=== PATIENT | female | born 1940 | race Caucasian/White ===

== ENCOUNTER 2017-09-16 19:53 | Emergency (ER) | payer MEDICARE, OTHER ==
[~2017-09-16] VITALS: Ht 160 cm; Wt 57.2 kg
[~2017-09-16 19:53] MED LIST: ASP81CT PO; DILT120C85 PO; Metoprolol Succinate PO; Simvastatin PO
--- NOTE | 2017-09-16 20:19 | ED General ---
General Chief Complaint: Dizziness/Syncope Stated Complaint: LIGHTHEADED,DIZZY Source of Information: Patient (VERY LIMITED HISTORIAN AND HARD OF HEARING), Family (SON) History of Present Illness Time Seen by Provider: 20:10 Initial Comments PT ARRIVES VIA POV FROM HOME PT C/O FEELING LIGHTHEADED AND DIZZY TODAY PT DENIES ANY OTHER SYMPTOMS OF ANY KIND TEMP IS 100.5 ON ARRIVAL--PT UNAWARE THAT SHE HAS FEVER NO COUGH NO CHEST PAIN OR SHORTNESS OF BREATH NO NAUSEA/VOMITING/DIARRHEA OR ABDOMINAL PAIN--GOOD APPETITE, ATE AND DRANK WELL TODAY NO PROBLEMS URINATING NO HEADACHE NO PAIN ANYWHERE PCP: DR. GOLD, [facility] Allergies and Home Medications Allergies Coded Allergies: propoxyphene (Unverified Allergy, Unknown, 03/22/15) Home Medications Aspirin 81 Mg Chew, 81 MG PO DAILY, (Reported) Aspirin 81 Mg Chew, 81 MG PO DAILY, #30 Ref 5 Prescribed by: JERMAN MARVIN on 03/22/15 0943 Diltiazem Hcl 120 Mg Capsule.sa, 120 MG PO DAILY, (Reported) Nitrofurantoin Monohyd/M-Cryst 100 Mg Capsule, 100 MG PO BID, #20 Prescribed by: MOMO COLON on 09/16/17 2345 [Metoprolol Succinate] 50 MG TAB, 50 MG PO ONCE, #30 Ref 5 Prescribed by: JERMAN MARVIN on 03/22/15 0943 [Simvastatin] 10 MG TAB, 10 MG PO HS, #30 Ref 5 Prescribed by: JERMAN MARVIN on 03/22/15 0943 Constitutional: see HPI, dizziness EENTM: no symptoms reported Respiratory: no symptoms reported Cardiovascular: no symptoms reported Gastrointestinal: no symptoms reported Genitourinary: no symptoms reported Musculoskeletal: no symptoms reported Skin: no symptoms reported Psychiatric/Neurological: No Symptoms Reported Hematologic/Lymphatic: No Symptoms Reported Immunological/Allergic: no symptoms reported Past Triuhlp-Wqxnuw-Clivcq Hx Patient Social History Alcohol Use: Denies Use Recreational Drug Use: No Smoking Status: Former Smoker (2 PPD) Recent Foreign Travel: No Contact w/Someone Who Travel: No Immunizations Up To Date Tetanus Booster (TDap): Unknown Surgeries History of Surgeries: No Respiratory History of Respiratory Disorde: No Cardiovascular History of Cardiac Disorders: Yes (NON-STEMI, NO CARDIAC CATH-TREATED CONSERVATIVELY) Cardiac Disorders: Heart Attack, High Cholesterol, Hypertension Neurological History of Neurological Disord: Yes (POOR MEMORY) 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 System Hx 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 Disorders: No 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 Genitourinary History of Genitourinary Disor: No Gastrointestinal History of Gastrointestinal Di: Yes (CHRONIC DIARRHEA WITH FECAL INCONTINENCE) Gastrointestinal Disorders: Chronic Diarrhea Musculoskeletal History of Musculoskeletal Dis: No Endocrine History of Endocrine Disorders: No HEENT History of HEENT Disorders: No Psychosocial History of Psychiatric Problem: No Integumentary History of Skin or Integumenta: No Blood Transfusions History of Blood Disorders: No Family Medical History Significant Family History: No Pertinent Family Hx Family Medial History: Alcoholism 19 FATHER BRAIN ANEURYSM G8 SISTER Completed stroke G8 SISTER Hypertension 19 MOTHER Physical Exam Vital Signs Vital Sign - Last 12Hours 09/16/17 20:15 Temp 100.5 Pulse 105 Resp 18 B/P (MAP) 203/99 (133) Pulse Ox 96 O2 Delivery Room Air Capillary Refill : General Appearance: No Apparent Distress, WD/WN, Other (DOES NOT APPEAR ILL OR TO BE IN ANY DISCOMFORT OR DISTRESS) HEENT: Other (HARD OF HEARING) Respiratory: No Accessory Muscle Use, No Respiratory Distress Neurologic/Psychiatric: Alert, Oriented x3, No Motor/Sensory Deficits, Normal 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/Affect, 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2 4.3-11.0 10^3/uL Red Blood Count 3.47 L 4.35-5.85 10^6/uL Hemoglobin 9.5 L 11.5-16.0 G/DL Hematocrit 32 L 35-52 % Mean Corpuscular Volume 92 80-99 FL Mean Corpuscular Hemoglobin 27 25-34 PG Mean Corpuscular Hemoglobin Concent 30 L 32-36 G/DL Red Cell Distribution Width 14.5 10.0-14.5 % Platelet Count 265 130-400 10^3/uL Mean Platelet Volume 11.5 H 7.4-10.4 FL Neutrophils (%) (Auto) 66 42-75 % Lymphocytes (%) (Auto) 25 12-44 % Monocytes (%) (Auto) 7 0-12 % Eosinophils (%) (Auto) 1 0-10 % Basophils (%) (Auto) 0 0-10 % Neutrophils # (Auto) 5.4 1.8-7.8 X 10^3 Lymphocytes # (Auto) 2.1 1.0-4.0 X 10^3 Monocytes # (Auto) 0.6 0.0-1.0 X 10^3 Eosinophils # (Auto) 0.1 0.0-0.3 10^3/uL Basophils # (Auto) 0.0 0.0-0.1 10^3/uL Prothrombin Time 13.4 12.2-14.7 SEC INR Comment 1.0 0.8-1.4 Activated Partial Thromboplast Time 33 24-35 SEC Sodium Level 141 135-145 MMOL/L Potassium Level 3.3 L 3.6-5.0 MMOL/L Chloride Level 105 98-107 MMOL/L Carbon Dioxide Level 24 21-32 MMOL/L Anion Gap 12 5-14 MMOL/L Blood Urea Nitrogen 11 7-18 MG/DL Creatinine 1.09 0.60-1.30 MG/DL Estimat Glomerular Filtration Rate 49 BUN/Creatinine Ratio 10 Glucose Level 119 H 70-105 MG/DL Lactic Acid Level 1.48 0.50-2.00 MMOL/L Calcium Level 8.5 8.5-10.1 MG/DL Magnesium Level 1.9 1.8-2.4 MG/DL Total Bilirubin 0.2 0.1-1.0 MG/DL Aspartate Amino Transf (AST/SGOT) 14 5-34 U/L Alanine Aminotransferase (ALT/SGPT) 7 0-55 U/L Alkaline Phosphatase 116 40-136 U/L Troponin I < 0.30 <0.30 NG/ML Total Protein 6.3 L 6.4-8.2 GM/DL Albumin 3.1 L 3.2-4.5 GM/DL TSH [place] Testing 2.52 0.35-4.94 UIU/ML Urine Color YELLOW Urine Clarity SLIGHTLY CLOUDY Urine pH 6.5 5-9 Urine Specific [place] 1.010 L 1.016-1.022 Urine Protein NEGATIVE NEGATIVE Urine Glucose (UA) NEGATIVE NEGATIVE Urine Ketones NEGATIVE NEGATIVE Urine Nitrite POSITIVE H NEGATIVE Urine Bilirubin NEGATIVE NEGATIVE Urine Urobilinogen NORMAL NORMAL MG/DL Urine Leukocyte Esterase 3+ H NEGATIVE Urine RBC (Auto) 2+ H NEGATIVE Urine RBC 0-2 /HPF Urine WBC 10-25 H /HPF Urine Squamous Epithelial Cells RARE /HPF Urine Crystals NONE /LPF Urine Bacteria LARGE H /HPF Urine Casts NONE /LPF Urine Mucus NEGATIVE /LPF Urine Culture Indicated YES Micro Results Microbiology 09/16/17 Blood Culture - Preliminary, Resulted No growth 09/16/17 Blood Culture - Preliminary, Resulted No growth 09/16/17 Influenza Types A,B Antigen (MERARY) - Final, Complete 09/16/17 Urine Culture - Preliminary, Resulted Gram Negative Dwaine My Orders Orders - MOMO COLON DO Saline Lock/Iv-Start (09/16/17 20:09) Ekg Tracing (09/16/17 20:09) Monitor-Rhythm Ecg Trace Only (09/16/17 20:09) Ct Head Wo-R/O Stroke (09/16/17 20:09) Cbc With Automated Diff (09/16/17 20:09) Comprehensive Metabolic Panel (09/16/17 20:09) Magnesium (09/16/17 20:09) Protime With Inr (09/16/17 20:09) Partial Thromboplastin Time (09/16/17 20:09) Thyroid Analyzer (09/16/17 20:09) Troponin I (09/16/17 20:09) Ua Culture If Indicated (09/16/17 20:09) Lactic Acid Analyzer (09/16/17 20:14) Blood Culture (09/16/17 20:14) Influenza A And B Antigens (09/16/17 20:14) Chest Pa/Lat (2 View) (09/16/17 20:14) Saline Lock/Iv-Start (09/16/17 22:18) Lactated Ringers (Lr 1000 Ml Iv Solution (09/16/17 22:18) Urine Culture (09/16/17 23:15) Ceftriaxone Injection (Rocephin Injectio (09/16/17 23:45) Acetaminophen Tablet (Tylenol Tablet) (09/16/17 23:45) Acetaminophen Tablet (Tylenol Tablet) (09/17/17 00:03) Medications Given in ED Vital Signs/I&O Capillary Refill : Progress Note : Progress Note SYMPTOMS RESOLVED AT TIME OF DISMISSAL ECG Initial ECG Impression Time: 20:17 Initial ECG Rate: 95 Initial ECG Rhythm: Normal Sinus (OAC;S ) Initial ECG Impression: Nonspecific Changes Initial ECG Comparisson: Unchanged Diagnostic Imaging Comments CXR--CHRONIC INTERSTITIAL CHANGES, NO ACUTE PROCESS CT HEAD--CHRONIC CHANGES, NO ACUTE PROCESS PER RADIOLOGIST REPORTS @ 2142 Reviewed: Reviewed by Me Departure Impression Impression: Primary Impression: UTI (urinary tract infection) Disposition: 01 HOME, SELF-CARE Condition: Improved Departure-Patient Inst. Referrals: OMAYRA GOLD MD (PCP) Primary Care Physician Patient Instructions: Urinary Tract Infection, Adult (DC) Add. Discharge Instructions: LOTS OF CLEAR LIQUIDS--NO COFFEE, POP OR TEA DRINK ENOUGH SO YOU ARE URINATING EVERY 2-3 HOURS WHILE AWAKE TYLENOL AND MOTRIN NEEDED FOR PAIN OR FEVER FOLLOW UP WITH YOUR DR IN 2-3 DAYS FOR FURTHER CARE RETURN TO ER IF WORSE All discharge instructions reviewed with patient and/or family. Voiced understanding. Scripts Nitrofurantoin Monohyd/M-Cryst (Macrobid 100 mg Capsule) 100 Mg Capsule 100 MG PO BID, #20 CAP Prov: MOMO COLON DO 09/16/17 MOMO COLON DO Sep 16, 2017 20:19
--- NOTE | 2017-09-16 20:43 | Diagnostic Imaging Report ---
INDICATION: Dizziness and lightheadedness. Fever. FINDINGS: There is advanced global volume loss present. There is no CT demonstration of acute hemorrhage. There is no abnormal extra-axial fluid collection. There is no mass effect or shift. There is no hydrocephalus. Basilar cisterns appear patent. There is no territorial loss of whitley-white differentiation evident by CT. There is no abnormal hypodensity within the basal ganglia or evidence of abnormal low density within the holger. Mastoid air cells appear clear. Paranasal sinuses clear. Orbital contents unremarkable. There is no calvarial abnormality. IMPRESSION: 1. Advanced global volume loss without CT evidence of an acute intracranial abnormality. If continued clinical concern for the possibility of stroke consider MRI. Dictated by: Dictated on workstation # [id number]
--- NOTE | 2017-09-16 20:50 | Diagnostic Imaging Report ---
EXAMINATION: Two-view chest. COMPARISON: Prior study from 04/23/2015. INDICATION: Dizziness and lightheadedness. Fever. FINDINGS: radiographic appearance of the chest is not significantly changed. There are chronic interstitial changes present in the lungs but no focal infiltrate demonstrated. There is no effusion or evidence of a pneumothorax. Heart size appears appropriate without evidence of failure. There are degenerative features throughout the spine but no suspicious osseous abnormality. IMPRESSION: Chronic interstitial changes within the lungs. No acute cardiopulmonary process evident. Dictated by: Dictated on workstation # [id number]
[2017-09-16 21:28] LABS: PROTHROMBIN TIME PATIENT 13.4 SEC (12.2-14.7)
[2017-09-16 21:31] LABS: BASOPHILS % (AUTO) 0 % (0-10); EOSINOPHILS # (AUTO) 0.1 10^3/uL (0.0-0.3); EOSINOPHILS % (AUTO) 1 % (0-10); HEMATOCRIT 32 % (35-52); HEMOGLOBIN 9.5 G/DL (11.5-16.0); LYMPHOCYTES # (AUTO) 2.1 X 10^3 (1.0-4.0); LYMPHOCYTES % (AUTO) 25 % (12-44); MEAN CORPUSCULAR HEMOGLOBIN 27 PG (25-34); MEAN CORPUSCULAR HGB CONC 30 G/DL (32-36); MEAN CORPUSCULAR VOLUME 92 FL (80-99); MEAN PLATELET VOLUME 11.5 FL (7.4-10.4); MONOCYTES # (AUTO) 0.6 X 10^3 (0.0-1.0); MONOCYTES % (AUTO) 7 % (0-12); NEUTROPHILS # (AUTO) 5.4 X 10^3 (1.8-7.8); NEUTROPHILS % (AUTO) 66 % (42-75); PLATELET COUNT 265 10^3/uL (130-400); RED BLOOD COUNT 3.47 10^6/uL (4.35-5.85); RED CELL DISTRIBUTION WIDTH 14.5 % (10.0-14.5); WHITE BLOOD COUNT 8.2 10^3/uL (4.3-11.0)
[2017-09-16 21:40] LABS: BUN/CREATININE RATIO 10; CALCIUM 8.5 MG/DL (8.5-10.1); CARBON DIOXIDE 24 MMOL/L (21-32); CHLORIDE 105 MMOL/L (98-107); CREATININE SERUM 1.09 MG/DL (0.60-1.30); GFR ESTIMATED 49; GLUCOSE 119 MG/DL (70-105); MAGNESIUM 1.9 MG/DL (1.8-2.4); POTASSIUM 3.3 MMOL/L (3.6-5.0); SODIUM 141 MMOL/L (135-145)
[2017-09-16 21:41] LABS: ALANINE AMINOTRANSFERASE 7 U/L (0-55); ALBUMIN 3.1 GM/DL (3.2-4.5); ALKALINE PHOSPHATASE 116 U/L (40-136); BILIRUBIN,TOTAL 0.2 MG/DL (0.1-1.0); TOTAL PROTEIN 6.3 GM/DL (6.4-8.2)
[2017-09-16 22:03] LABS: TSH (THYROID ANALYZER) 2.52 UIU/ML (0.35-4.94)
[2017-09-16] MEDS ORDERED: LACTATED RINGERS 1,000 ML IV ONE (22:18)
[2017-09-16 23:31] LABS: BILIRUBIN,URINE NEGATIVE (NEGATIVE); CLARITY,URINE SLIGHTLY CLOUDY; COLOR,URINE YELLOW; GLUCOSE, URINE (UA) NEGATIVE (NEGATIVE); KETONES,URINE NEGATIVE (NEGATIVE); LEUKOCYTE ESTERASE ,URINE 3+ (NEGATIVE); NITRITE,URINE POSITIVE (NEGATIVE); PH,URINE 6.5 (5-9); PROTEIN,URINE NEGATIVE (NEGATIVE); UROBILINOGEN,URINE NORMAL (NORMAL)
[2017-09-16 23:38] LABS: BACTERIA,URINE LARGE /HPF; RBC,URINE 0-2 /HPF; SQUAMOUS EPITHELIAL CELL,UR RARE /HPF
[2017-09-16] MEDS ORDERED: ACETAMINOPHEN 500 MG TAB (TYLENOL) PO ONE (23:45)
[2017-09-16] MEDS ORDERED: cefTRIAXone INJECTION 1,000 MG in NS (IVPB) 50 ML IV ONE (23:45)
[2017-09-16] MEDS ORDERED: NITR-65 PO (23:45)
[2017-09-17] MEDS ORDERED: ACETAMINOPHEN 500 MG TAB (TYLENOL) ONE (00:03)
[2017-09-17 00:30] VITALS: BP 192/90
== END 2017-09-17 00:30 | disposition home or self-care (01) ==
LOC: EDUNIT# 19:53 → ER 19:56
DX: N39.0 Urinary tract infection, site not specified (principal); Z79.82 Long term (current) use of aspirin
CPT/HCPCS: 36415; 70450; 71046; 80053; 81000; 83605; 83735; 84443; 84484; 85025; 85610; 85730; 87040; 87077; 87088; 87186; 87804; 93005; 93041; 96361; 96365

== ENCOUNTER 2018-11-28 14:33 | Inpatient (IN) | payer MEDICARE, OTHER ==
[~2018-11-28] VITALS: Ht 157.5 cm; Wt 63.3 kg
[~2018-11-28 14:33] MED LIST changes: +CEFD300C3 PO; +FURO-125 PO; +NITR-65 PO; +OMEP40CA36 PO
[2018-11-28] MEDS ORDERED: NS IV 500 ML 500 ML IV ONE (14:40)
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
[2018-11-28 15:06] LABS: BASOPHILS % (AUTO) 0 % (0-10); EOSINOPHILS % (AUTO) 0 % (0-10); HEMATOCRIT 28 % (35-52); HEMOGLOBIN 8.7 G/DL (11.5-16.0); LYMPHOCYTES # (AUTO) 1.1 X 10^3 (1.0-4.0); LYMPHOCYTES % (AUTO) 10 % (12-44); MEAN CORPUSCULAR HEMOGLOBIN 26 PG (25-34); MEAN CORPUSCULAR HGB CONC 32 G/DL (32-36); MEAN CORPUSCULAR VOLUME 82 FL (80-99); MEAN PLATELET VOLUME 11.1 FL (7.4-10.4); MONOCYTES # (AUTO) 0.7 X 10^3 (0.0-1.0); MONOCYTES % (AUTO) 6 % (0-12); NEUTROPHILS # (AUTO) 9.5 X 10^3 (1.8-7.8); NEUTROPHILS % (AUTO) 84 % (42-75); PLATELET COUNT 241 10^3/uL (130-400); RED CELL DISTRIBUTION WIDTH 17.4 % (10.0-14.5); WHITE BLOOD COUNT 11.3 10^3/uL (4.3-11.0)
[2018-11-28 15:26] LABS: ALBUMIN 2.6 GM/DL (3.2-4.5); BILIRUBIN,TOTAL 0.5 MG/DL (0.1-1.0); CALCIUM 8.2 MG/DL (8.5-10.1); CREATININE SERUM 1.13 MG/DL (0.60-1.30); MAGNESIUM 1.2 MG/DL (1.8-2.4); TOTAL PROTEIN 5.7 GM/DL (6.4-8.2)
[2018-11-28 15:41] LABS: POTASSIUM 2.5 MMOL/L (3.6-5.0)
[2018-11-28 15:45] LABS: INR 1.4 (0.8-1.4); PROTHROMBIN TIME PATIENT 16.8 SEC (12.2-14.7)
--- NOTE | 2018-11-28 15:57 | Diagnostic Imaging Report ---
PROCEDURE: CT head without contrast. TECHNIQUE: Multiple contiguous axial images were obtained through the brain without the use of intravenous contrast. Auto Exposure Controls were utilized during the CT exam to meet ALARA standards for radiation dose reduction. INDICATION: Altered mental status. Correlation is made with prior head CT from 12/31/2017. FINDINGS: The ventricles and sulci are within normal limits. No sulcal effacement, midline shift, or hemorrhage is detected. Cisterns are patent. The visualized paranasal sinuses are clear. IMPRESSION: No acute intracranial process is detected. Dictated by: Dictated on workstation # [id number]
[2018-11-28] MEDS ORDERED: NS IV 1000 ML 1,000 ML IV ONE (16:00)
--- NOTE | 2018-11-28 16:03 | Diagnostic Imaging Report ---
INDICATION: Altered mental status. Portable upright AP view of the chest is obtained with comparison made to study of 12/31/2017. There is bilateral air trapping. There is mild cardiomegaly. No pneumothorax or consolidation is seen. There is no significant pleural fluid. IMPRESSION: Air trapping indicating emphysema. Otherwise, there is mild cardiomegaly without other acute abnormality seen in the chest. Dictated by: Dictated on workstation # [id number]
[2018-11-28 16:30] LABS: BILIRUBIN,URINE NEGATIVE (NEGATIVE); CLARITY,URINE CLEAR; COLOR,URINE YELLOW; GLUCOSE, URINE (UA) NEGATIVE (NEGATIVE); KETONES,URINE 1+ (NEGATIVE); LEUKOCYTE ESTERASE ,URINE 3+ (NEGATIVE); NITRITE,URINE NEGATIVE (NEGATIVE); PH,URINE 5 (5-9); PROTEIN,URINE 2+ (NEGATIVE); UROBILINOGEN,URINE NORMAL (NORMAL)
[2018-11-28] MEDS ORDERED: POTASSIUM CL 10MEQ/50ML IVPB 50 ML IV ONE (16:30)
[2018-11-28] MEDS ORDERED: KCL 10 MEQ TAB (MICRO K) PO ONE (16:30)
--- NOTE | 2018-11-28 16:40 | NUR ---
WOund check of sacrum with Dr. Baez.
[2018-11-28 16:46] LABS: BACTERIA,URINE TRACE /HPF; WBC,URINE TNTC /HPF; YEAST,URINE LARGE /HPF
[2018-11-28] MEDS ORDERED: HEParin 1000 UNIT/ML (10ML VIAL) FOR BOLUS IV ONE (17:10)
[2018-11-28] MEDS ORDERED: HEParin DRIP 25000 UNIT/500ML 500 ML IV ONE (17:10)
[2018-11-28] MEDS ORDERED: meTOprolol 5 MG/5 ML (LOPRESSOR) VIAL IV ONE (17:15)
--- NOTE | 2018-11-28 18:25 | Consultation-Cardiology ---
HPI-Cardiology Cardiology Consultation Date of Consultation 11/28/18 Date of Admission Time Seen by Provider: 18:19 Indication: coronary artery disease HPI 78 years old lady known to have small vessel coronary artery disease, hypertension. Was brought by her family due to generalized weakness and loss of energy. Workup showed urinary tract infection. She had elevated troponin and noted to be in atrial fibrillation. She denied any chest pain. No palpitation, no shortness of breath, has been having increasing peripheral edema. Home Medications & Allergies Allergies: Coded Allergies: propoxyphene (Unverified Allergy, Unknown, 03/22/15) Home Medication List Reviewed: Yes [id number] Hx Patient Social History Marital Status: Employed/Student: retired Alcohol Use: Denies Use Recreational Drug Use: No Type Used: Electronic/Vapor Recent Foreign Travel: No Recent Infectious Disease Expo: No Immunizations Up To Date Tetanus Booster (TDap): Unknown Past Medical History Described below Family Medical History Significant Family History: No Pertinent Family Hx Family History: Alcoholism 19 FATHER BRAIN ANEURYSM G8 SISTER Completed stroke G8 SISTER Hypertension 19 MOTHER Review of Systems Constitutional: see HPI, malaise, weakness EENTM: see HPI, hearing loss Respiratory: see HPI; No cough, No dyspnea on exertion, No hemoptysis, No orthopnea, No phlegm, No short of breath, No stridor, No wheezing, No other Cardiovascular: see HPI; No chest pain; edema; No Hx of Intervention, No palpitations, No syncope, No vascular heart diseas, No other Gastrointestinal: no symptoms reported, see HPI Genitourinary: no symptoms reported, see HPI Musculoskeletal: see HPI, muscle weakness Skin: no symptoms reported, see HPI Psychiatric/Neurological: No Symptoms Reported, See HPI Reviewed Test Results Reviewed Test Results Lab Laboratory Tests Test 11/28/18 14:50 11/28/18 16:20 11/28/18 17:00 Range/Units White Blood Count 11.3 H 4.3-11.0 10^3/uL Red Blood Count 3.37 L 4.35-5.85 10^6/uL Hemoglobin 8.7 L 11.5-16.0 G/DL Hematocrit 28 L 35-52 % Mean Corpuscular Volume 82 80-99 FL Mean Corpuscular Hemoglobin 26 25-34 PG Mean Corpuscular Hemoglobin Concent 32 32-36 G/DL Red Cell Distribution Width 17.4 H 10.0-14.5 % Platelet Count 241 130-400 10^3/uL Mean Platelet Volume 11.1 H 7.4-10.4 FL Neutrophils (%) (Auto) 84 H 42-75 % Lymphocytes (%) (Auto) 10 L 12-44 % Monocytes (%) (Auto) 6 0-12 % Eosinophils (%) (Auto) 0 0-10 % Basophils (%) (Auto) 0 0-10 % Neutrophils # (Auto) 9.5 H 1.8-7.8 X 10^3 Lymphocytes # (Auto) 1.1 1.0-4.0 X 10^3 Monocytes # (Auto) 0.7 0.0-1.0 X 10^3 Eosinophils # (Auto) 0.0 0.0-0.3 10^3/uL Basophils # (Auto) 0.0 0.0-0.1 10^3/uL Prothrombin Time 16.8 H 12.2-14.7 SEC INR Comment 1.4 0.8-1.4 Activated Partial Thromboplast Time 36 H 24-35 SEC Sodium Level 138 135-145 MMOL/L Potassium Level 2.5 *L 3.6-5.0 MMOL/L Chloride Level 99 98-107 MMOL/L Carbon Dioxide Level 29 21-32 MMOL/L Anion Gap 10 5-14 MMOL/L Blood Urea Nitrogen 19 H 7-18 MG/DL Creatinine 1.13 0.60-1.30 MG/DL Estimat Glomerular Filtration Rate 46 BUN/Creatinine Ratio 17 Glucose Level 130 H 70-105 MG/DL Lactic Acid Level 2.85 *H 1.76 0.50-2.00 MMOL/L Calcium Level 8.2 L 8.5-10.1 MG/DL Corrected Calcium 9.3 8.5-10.1 MG/DL Magnesium Level 1.2 L 1.8-2.4 MG/DL Total Bilirubin 0.5 0.1-1.0 MG/DL Aspartate Amino Transf (AST/SGOT) 39 H 5-34 U/L Alanine Aminotransferase (ALT/SGPT) 16 0-55 U/L Alkaline Phosphatase 52 40-136 U/L Troponin I 0.364 *H <0.028 NG/ML C-Reactive Protein High Sensitivity 14.68 H 0.00-0.50 MG/DL Total Protein 5.7 L 6.4-8.2 GM/DL Albumin 2.6 L 3.2-4.5 GM/DL Thyroid Stimulating Hormone (TSH) 1.31 0.35-4.94 UIU/ML Urine Color YELLOW Urine Clarity CLEAR Urine pH 5 5-9 Urine Specific [place] 1.020 1.016-1.022 Urine Protein 2+ H NEGATIVE Urine Glucose (UA) NEGATIVE NEGATIVE Urine Ketones 1+ H NEGATIVE Urine Nitrite NEGATIVE NEGATIVE Urine Bilirubin NEGATIVE NEGATIVE Urine Urobilinogen NORMAL NORMAL MG/DL Urine Leukocyte Esterase 3+ H NEGATIVE Urine RBC (Auto) 4+ H NEGATIVE Urine RBC 2-5 H /HPF Urine WBC TNTC H /HPF Urine Crystals NONE /LPF Urine Bacteria TRACE /HPF Urine Casts NONE /LPF Urine Mucus NEGATIVE /LPF Urine Yeast LARGE H /HPF Urine Culture Indicated YES Physical Exam Vital Signs Vital Signs - First Documented 11/28/18 14:35 Temp 97.4 Pulse 127 Resp 13 B/P (MAP) 130/80 (97) Pulse Ox 94 O2 Delivery Nasal Cannula O2 Flow Rate 2.00 Capillary Refill : Less Than 3 Seconds Height, Weight, BMI Height: 5'2.00" Weight: 126lbs. 8.0oz. 57.039646rn; BMI Method:Stated General Appearance: WD/WN, Mild Distress Eyes: Bilateral Eye Normal Inspection, Bilateral Eye PERRL, Bilateral Eye EOMI HEENT: PERRL/EOMI, TMs Normal, Normal ENT Inspection, Pharynx Normal Neck: Full Range of Motion, Normal Inspection, Non Tender, Supple, Carotid Bruit Respiratory: Chest Non Tender, Lungs Clear, Normal Breath Sounds, No Accessory Muscle Use, No Respiratory Distress Cardiovascular: No Gallop, No JVD, Normal Peripheral Pulses, Systolic Murmur, Irregularly Irregular Gastrointestinal: Normal Bowel Sounds, No Organomegaly, No Pulsatile Mass, Non Tender, Soft Back: Normal Inspection, No CVA Tenderness, No Vertebral Tenderness Extremity: Normal Capillary Refill, Normal Inspection, Normal Range of Motion, Non Tender, No Calf Tenderness, Pedal Edema Neurologic/Psychiatric: Alert, Oriented x3, Normal Mood/Affect Skin: Normal Color, Warm/Dry Lymphatic: No Adenopathy A/P-Cardiology Admission Diagnosis Non-ST elevation myocardial infarction Coronary artery disease Atrial fibrillation Peripheral arterial disease Urinary tract infection Assessment/Plan Non-ST elevation myocardial infarction, last cardiac catheterization was done by Dr. Davidson in March 2015 reported to have mild to moderate disease in the left coronary system with severe disease in a very small caliber right coronary artery that was not amendable to intervention. Normal left ventricular size and function. Having elevated troponin at this time, could be secondary to sepsis or atrial fibrillation. Conservative management at this point and monitor. Patient denied any active chest pain or shortness of breath. Acute atrial fibrillation, unknown duration, rate is controlled. I will continue on beta blockers and use heparin drip to reduce the risk of stroke. Monitor closely Peripheral arterial disease, had 70 percent stenosis in the distal right external iliac artery noted at the time of cardiac catheterization in March 2015. Not having any symptoms at this time Extensive peripheral edema, worsening at this time. Will need to initiate diuretics once her electrolytes are corrected. I will evaluate 2-D echocardiogram. Urinary tract infection, managed by primary care team Anemia with history of positive stool for occult blood, starting on heparin and monitoring closely. Hypokalemia, hypomagnesemia, continue to replace and monitor closely. Significant hearing loss. Poor memory, she is alert and oriented History of hypertension, monitor blood pressure History of anxiety. SAMMY VIGIL MD Nov 28, 2018 18:25
[2018-11-28] MEDS ORDERED: POTASSIUM CL 10MEQ/50ML IVPB 50 ML IV SCH (18:30)
[2018-11-28] MEDS ORDERED: MAGNESIUM 1 GM/100 ML IVPB 100 ML IV SCH (18:30)
[2018-11-28] MEDS ORDERED: CATHETER FLUSH 10 ML SYR IV PRN (18:45)
--- NOTE | 2018-11-28 18:47 | NUR ---
attempted to call report; no answer
--- NOTE | 2018-11-28 20:10 | NUR ---
LEA ELIZABETH admitted to room 415-1, with an admitting diagnosis of UTI AND STAGE 2 DECUBITUS ULCER, on 11/28/18 from ED via STRETCH[facility], accompanied by STAFF AND ADULT CHILD.LEA ELIZABETH introduced to surroundings, call light, bed controls, phone, TV, temperature control, lights, meal times, smoking policy, visitor policy, side rail policy, bathrooms and showers. Patient Rights given to patient in the handbook. LEA ELIZABETH verbalizes understanding that [facility] is not responsible for the loss or damage to any personal effects or valuables that are kept in the patients possession during their hospitalization. PLANS OF CARE DISCUSSED WITH PT AND FAMILY AND VERBALIZES UNDERSTANDING. LEA ELIZABETH verbalizes understanding of Interdisciplinary Patient Education. Patient and/or family were informed about the Rapid Response Team and its purpose.
[2018-11-28 20:14] VITALS: BP 128/60
[2018-11-28] MEDS ORDERED: NITROGLYCERIN 0.4 MG SL TABS BTL 25'S SL PRN (20:15)
[2018-11-28] MEDS ORDERED: morphine INJ 4 MG/ML 1 ML (VIAL/SYRINGE) IV PRN (20:15)
[2018-11-28] MEDS ORDERED: HEParin DRIP 25000 UNIT/500ML (FULL THERAPY) IV SCH (21:45)
[2018-11-28 21:46] LABS: MYOGLOBIN SERUM 475.9 NG/ML (10.0-92.0)
[2018-11-28] MEDS: NS IV 1000 ML 1,000 ML IV SCH (22:10)
[2018-11-28] MEDS: CATHETER FLUSH 10 ML SYR IV SCH (22:11)
[2018-11-28] MEDS ORDERED: ACETAMINOPHEN 500 MG TAB (TYLENOL) PO PRN (22:15)
[2018-11-28] MEDS ORDERED: ONDANSETRON 4 MG/2 ML (SDV) Z0FRAN IVP PRN (22:15)
[2018-11-28] MEDS ORDERED: DOCUSATE SODIUM 100 MG (COLACE) CAP PO PRN (22:15)
[2018-11-28] MEDS ORDERED: HYDROcodone/APAP 5 MG/325 MG (LORTAB) TAB PO PRN (22:15)
[2018-11-28] MEDS ORDERED: MELATONIN 3 MG TABLET PO PRN (22:15)
[2018-11-28] MEDS ORDERED: ALPRAZolam 0.25 MG (XANAX) TAB PO PRN (22:15)
[2018-11-28] MEDS ORDERED: LOPERAMIDE 2 MG (IMODIUM) CAP PO PRN (22:15)
[2018-11-28] MEDS ORDERED: fentaNYL INJECTION 100 MCG/2 ML AMP IVP PRN (22:15)
[2018-11-28] MEDS ORDERED: CALCIUM CARBONATE 500 MG (TUMS) TAB.CHEW PO PRN (22:15)
[2018-11-28] MEDS ORDERED: diphenhydrAMINE 25 MG TAB (BENADRYL) PO PRN (22:15)
[2018-11-28 22:24] VITALS: BP 106/66
[2018-11-28] MEDS: meTOprolol TARTRATE 25 MG (LOPRESSOR) TABLET PO SCH (22:33)
[2018-11-28] MEDS: cefTRIAXone 1,000 MG/SWFI 10 ML IV PUSH IV SCH ×2 (22:34)
[2018-11-28 22:41] VITALS: BP 122/54
[2018-11-29] VITALS (7 sets, daily range): BP systolic 104–146; BP diastolic 55–87
[2018-11-29] MEDS ORDERED: RT-ALBUTEROL/IPRATROPIUM 3 ML (DUONEB) VIAL INH SCH (02:00)
--- NOTE | 2018-11-29 02:30 | NUR ---
PTT FOR PT WAS 133. DECREASED INFUSION RATE BY 2.3-FROM 20.5 TO 18.2. COSIGNED WITH MIGUEL ÁNGEL CHU
--- NOTE | 2018-11-29 04:06 | NUR ---
WHEN REVIEWING MEDICATIONS, NOTICED POTASSIUM AND MAGNESIUM WERE ON THE EMAR. MEDICATIONS WERE TIMED PRIOR TO PTS ARRIVAL TO FLOOR. DID NOT ADMINISTER MEDICATIONS.
[2018-11-29 06:16] LABS: BASOPHILS % (AUTO) 0 % (0-10); EOSINOPHILS % (AUTO) 0 % (0-10); HEMATOCRIT 25 % (35-52); LYMPHOCYTES # (AUTO) 0.7 X 10^3 (1.0-4.0); LYMPHOCYTES % (AUTO) 9 % (12-44); MEAN CORPUSCULAR HEMOGLOBIN 26 PG (25-34); MEAN CORPUSCULAR HGB CONC 32 G/DL (32-36); MEAN CORPUSCULAR VOLUME 82 FL (80-99); MEAN PLATELET VOLUME 11.3 FL (7.4-10.4); MONOCYTES # (AUTO) 0.6 X 10^3 (0.0-1.0); MONOCYTES % (AUTO) 7 % (0-12); NEUTROPHILS % (AUTO) 84 % (42-75); PLATELET COUNT 216 10^3/uL (130-400); RED CELL DISTRIBUTION WIDTH 17.5 % (10.0-14.5); WHITE BLOOD COUNT 8.3 10^3/uL (4.3-11.0)
[2018-11-29] MEDS: PANTOPRAZOLE 40 MG (PROTONIX) TAB PO SCH (06:19)
[2018-11-29] MEDS: NS IV 1000 ML 1,000 ML IV SCH ×3 (06:20→20:40)
[2018-11-29] MEDS: CATHETER FLUSH 10 ML SYR IV SCH ×3 (06:20→22:50)
[2018-11-29 06:38] LABS: ALBUMIN 2.2 GM/DL (3.2-4.5); BILIRUBIN,TOTAL 0.3 MG/DL (0.1-1.0); CALCIUM 7.6 MG/DL (8.5-10.1); CREATININE SERUM 0.92 MG/DL (0.60-1.30); MAGNESIUM 1.1 MG/DL (1.8-2.4); POTASSIUM 2.9 MMOL/L (3.6-5.0); TOTAL PROTEIN 4.7 GM/DL (6.4-8.2)
--- NOTE | 2018-11-29 06:45 | NUR ---
LET DR BREEN KNOW PT HAS A CRITICAL TROPONIN OF 0.369
--- NOTE | 2018-11-29 08:13 | Wound Care Assessment ---
Wound Care Assessment Date Seen by Provider: Nov 29, 2018 Time Seen by Provider: 07:45 Chief Complaint Sacral and L buttock pressure ulcers. HPI The patient is a 78 year old female who lives alone and is admitted for myocardial infarction with the above Stage 2 pressure ulcers present on admission. There appears to be a significant moisture component to the problem , the ulcers are superficial, barrier cream and off-loading are ordered. Recreational Drug Use: No Alcohol Use: Denies Use Exam Vital Signs Date Time Temp Pulse Resp B/P (MAP) Pulse Ox O2 Delivery O2 Flow Rate FiO2 11/29/18 07:00 82 11/29/18 04:00 97.6 20 146/82 (103) 93 Room Air 11/28/18 23:57 2.00 11/28/18 22:41 21 Capillary Refill : Less Than 3 Seconds Results Laboratory Tests 11/28/18 14:50: White Blood Count 11.3H, Red Blood Count 3.37L, Hemoglobin 8.7L, Hematocrit 28L , Mean Corpuscular Volume 82, Mean Corpuscular Hemoglobin 26, Mean Corpuscular Hemoglobin Concent 32, Red Cell Distribution Width 17.4H, Platelet Count 241, Mean Platelet Volume 11.1H, Neutrophils (%) (Auto) 84H, Lymphocytes (%) (Auto) 10L, Monocytes (%) (Auto) 6, Eosinophils (%) (Auto) 0, Basophils (%) (Auto) 0, Neutrophils # (Auto) 9.5H, Lymphocytes # (Auto) 1.1, Monocytes # (Auto) 0.7, Eosinophils # (Auto) 0.0, Basophils # (Auto) 0.0, Prothrombin Time 16.8H, INR Comment 1.4, Activated Partial Thromboplast Time 36H, Sodium Level 138, Potassium Level 2.5*L, Chloride Level 99, Carbon Dioxide Level 29, Anion Gap 10 , Blood Urea Nitrogen 19H, Creatinine 1.13, Estimat Glomerular Filtration Rate 46, BUN/Creatinine Ratio 17, Glucose Level 130H, Lactic Acid Level 2.85*H, Calcium Level 8.2L, Corrected Calcium 9.3, Magnesium Level 1.2L, Total Bilirubin 0.5, Aspartate Amino Transf (AST/SGOT) 39H, Alanine Aminotransferase ( ALT/SGPT) 16, Alkaline Phosphatase 52, Troponin I 0.364*H, C-Reactive Protein High Sensitivity 14.68H, Total Protein 5.7L, Albumin 2.6L, Thyroid Stimulating Hormone (TSH) 1.31 11/28/18 16:20: Urine Color YELLOW, Urine Clarity CLEAR, Urine pH 5, Urine Specific [place] 1.020, Urine Protein 2+H, Urine Glucose (UA) NEGATIVE, Urine Ketones 1+H, Urine Nitrite NEGATIVE, Urine Bilirubin NEGATIVE, Urine Urobilinogen NORMAL, Urine Leukocyte Esterase 3+H, Urine RBC (Auto) 4+H, Urine RBC 2-5H, Urine WBC TNTCH, Urine Crystals NONE, Urine Bacteria TRACE, Urine Casts NONE, Urine Mucus NEGATIVE, Urine Yeast LARGEH, Urine Culture Indicated YES 11/28/18 17:00: Lactic Acid Level 1.76 11/28/18 21:13: Troponin I 0.265H, Total Creatine Kinase 369H, Myoglobin 475.9H, Triglycerides Level 52, Cholesterol Level 68, LDL Cholesterol Direct 25, VLDL Cholesterol 10, HDL Cholesterol 26L 11/29/18 02:15: Activated Partial Thromboplast Time 133*H 11/29/18 05:45: White Blood Count 8.3, Red Blood Count 3.08L, Hemoglobin 8.0L, Hematocrit 25L, Mean Corpuscular Volume 82, Mean Corpuscular Hemoglobin 26, Mean Corpuscular Hemoglobin Concent 32, Red Cell Distribution Width 17.5H, Platelet Count 216, Mean Platelet Volume 11.3H, Neutrophils (%) (Auto) 84H, Lymphocytes (%) (Auto) 9L, Monocytes (%) (Auto) 7, Eosinophils (%) (Auto) 0, Basophils (%) (Auto) 0, Neutrophils # (Auto) 7.0, Lymphocytes # (Auto) 0.7L, Monocytes # (Auto) 0.6, Eosinophils # (Auto) 0.0, Basophils # (Auto) 0.0, Sodium Level 140, Potassium Level 2.9L, Chloride Level 107, Carbon Dioxide Level 22, Anion Gap 11, Blood Urea Nitrogen 15, Creatinine 0.92, Estimat Glomerular Filtration Rate 59, BUN/ Creatinine Ratio 16, Glucose Level 122H, Calcium Level 7.6L, Corrected Calcium 9.0, Magnesium Level 1.1L, Total Bilirubin 0.3, Aspartate Amino Transf (AST/SGOT ) 29, Alanine Aminotransferase (ALT/SGPT) 12, Alkaline Phosphatase 48, Troponin I 0.369*H, Total Protein 4.7L, Albumin 2.2L Microbiology 11/28/18 Influenza Types A,B Antigen (MERARY) - Final, Complete Microbiology 11/28/18 Influenza Types A,B Antigen (MERARY) - Final, Complete KAREN ARELLANO MD Nov 29, 2018 08:13
--- NOTE | 2018-11-29 10:31 | History & Physical-Hospitalist ---
History of Present Illness HPI/Chief Complaint CC: UTI with altered mental status HPI: This is a 78-year-old white female clinic patient of Dr. Jaramillo, whom I visited with regarding this patient, who has a past medical history of dementia who presented to the ER via EMS with elevated troponin, hypokalemia, atrial fibrillation, and sacral decubitus ulcer who was unable to get up out of bed at home and patient appears to be in need of a intermediate placement. Previously the family refused intermediate placement per primary care provider but now apparently is willing to look into that option. Patient is currently sleeping she does open her eyes but she appears to be confused. Source: RN/MD Exam Limitations: clinical condition Date Seen 11/29/18 Time Seen by a Provider: 09:30 Attending Physician Caro Torrez Wen-Chou MD Referring Physician Date of Admission Nov 28, 2018 at 16:59 Home Medications & Allergies Home Medications Reviewed patient Home Medication Reconciliation performed by pharmacy medication reconciliations industrial safety and health technician and/or nursing. Patients Allergies have been reviewed. Allergies Allergies Coded Allergies propoxyphene (Unverified Allergy, Unknown, 03/22/15) Past Siyxecu-Gqsylt-Hgmbkw Hx Past Med/Social Hx: Reviewed Nursing Past Med/Soc Hx, Reviewed and Corrections made Patient Social History Marrital Status: Employed/Student: retired Alcohol Use: Denies Use Recreational Drug Use: No Smoking Status: Unknown if Ever Smoked Former Smoker, Quit: Dec 11, 2002 Type Used: Electronic/Vapor Recent Foreign Travel: No Contact w/other who traveled: No Recent Infectious Disease Expo: No Immunizations Up To Date Tetanus Booster (TDap): Unknown Past Medical History Cardiac: Aneurysm, Heart Attack, High Cholesterol, Hypertension Neurological: Dementia 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: No Menopausal Gastrointestinal: Chronic Diarrhea Cancer: Ovarian History of Blood Disorders: No Family History Reviewed Nursing Family Hx Alcoholism 19 FATHER BRAIN ANEURYSM G8 SISTER Completed stroke G8 SISTER Hypertension 19 MOTHER No Pertinent Family Hx Review of Systems ROS-Unable to Obtain: Unable to ascertain Constitutional: see HPI Physical Exam Physical Exam Vital Signs Vital Signs - First Documented 11/28/18 11/28/18 14:35 22:41 Temp 97.4 Pulse 127 Resp 13 B/P (MAP) 130/80 (97) Pulse Ox 94 O2 Delivery Nasal Cannula O2 Flow Rate 2.00 FiO2 21 Capillary Refill : Less Than 3 Seconds Height, Weight, BMI Height: 5'2.00" Weight: 116lbs. 9.0oz. 52.360234dl; 21.3 BMI Method:Stated General Appearance: No Apparent Distress, WD/WN, Chronically ill, Thin, Other ( Sleeping) Eyes: Right Eye Normal Inspection, Right Eye PERRL Respiratory: Lungs Clear, Normal Breath Sounds, No Accessory Muscle Use, No Respiratory Distress, Decreased Breath Sounds Cardiovascular: Regular Rate, Rhythm, No Edema, No Gallop, No JVD, No Murmur, Normal Peripheral Pulses Gastrointestinal: Normal Bowel Sounds, No Organomegaly, No Pulsatile Mass, Non Tender, Soft Back: Normal Inspection, No CVA Tenderness, No Vertebral Tenderness Extremity: Normal Capillary Refill, Normal Inspection, Normal Range of Motion, Non Tender, No Calf Tenderness, No Pedal Edema Neurologic/Psychiatric: Disoriented Skin: Normal Color, Warm/Dry Lymphatic: No Adenopathy Results Results/Procedures Labs Laboratory Tests 11/28/18 14:50 11/29/18 05:45 Patient resulted labs reviewed. Assessment/Plan Admission Diagnosis Assessment: UTI Altered mental statuses on right forehead Elevated troponin Hypokalemia Atrial fibrillation Sacral decubitus ulcer Frail status Falls Plan: social work consult IV fluids and supportive care Cardiology consultation Poor prognosis Needs DNR Admission Status: Inpatient Order (span 2 midnights) Reason for Inpatient Admission: UTI with altered mental status will need intermediate placement Diagnosis/Problems Diagnosis/Problems (1) Stage II decubitus ulcer Status: Acute Qualifiers: Pressure injury location: sacral region Qualified Codes: L89.152 - Pressure ulcer of sacral region, stage 2 (2) Dementia Status: Chronic Qualifiers: Dementia type: Alzheimer's disease Alzheimer's disease onset: unspecified onset Dementia behavioral disturbance: without behavioral disturbance Qualified Codes: G30.9 - Alzheimer's disease, unspecified; F02.80 - Dementia in other diseases classified elsewhere without behavioral disturbance (3) Hypokalemia Status: Acute (4) Urinary tract infection Status: Acute Qualifiers: Urinary tract infection type: acute cystitis Hematuria presence: without hematuria Qualified Codes: N30.00 - Acute cystitis without hematuria (5) NSTEMI (non-ST elevated myocardial infarction) Status: Acute (6) Atrial fibrillation Status: Acute Qualifiers: Atrial fibrillation type: chronic Qualified Codes: I48.2 - Chronic atrial fibrillation (7) Hypertension Status: Chronic Qualifiers: Hypertension type: essential hypertension Qualified Codes: I10 - Essential (primary) hypertension Clinical Quality Measures DVT/VTE Risk/Contraindication: Risk Factor Score Per Nursin RFS Level Per Nursing on Admit: 3=High CARO TORREZ DO Nov 29, 2018 10:31
[2018-11-29] MEDS: ASPIRIN E.C. 81 MG (ECOTRIN) TAB PO SCH (10:38)
[2018-11-29] MEDS: meTOprolol TARTRATE 25 MG (LOPRESSOR) TABLET PO SCH ×2 (10:39→21:06)
[2018-11-29] MEDS: HEParin 1000 UNIT/ML BOLUS (FULL THERAPY) IV PRN (10:41)
[2018-11-29] MEDS ORDERED: MAGNESIUM 1 GM/100 ML IVPB 200 ML IV ONE (10:51)
--- NOTE | 2018-11-29 10:57 | Cardiology Progress Note ---
Subjective Date Seen by Provider: Nov 29, 2018 Time Seen by Provider: 10:54 Subjective/Events-last exam Patient is laying down in bed, feeling better, still having some confusion. Talking to her . Oriented otherwise. Review of Systems General: No Chills, No Night Sweats; Fatigue, Malaise; No Appetite, No Other HEENT: No Head Aches, No Visual Changes, No Eye Pain, No Ear Pain, No Dysphasia , No Sinus Congestion, No Post Nasal Drip, No Sore Throat, No Other Pulmonary: No Dyspnea, No Cough, No Pleuritic Chest Pain, No Other Cardiovascular: No: Chest Pain, Palpitations, Orthopnea, Paroxysmal Noc. Dyspnea, Edema, Lt Headedness, Other Focused Exam Lactate Level 11/28/18 14:50: Lactic Acid Level 2.85*H 11/28/18 17:00: Lactic Acid Level 1.76 Objective-Cardiology Exam Last Set of Vital Signs Vital Signs 11/28/18 11/28/18 11/29/18 22:41 23:57 09:00 Temp 99.1 Pulse 95 Resp 20 B/P (MAP) 145/87 (106) Pulse Ox 97 O2 Delivery Room Air O2 Flow Rate 2.00 FiO2 21 Capillary Refill : Less Than 3 Seconds I&O Intake and Output 11/29/18 00:00 Intake Total 1600 ml Output Total 30 ml Balance 1570 ml Intake Oral 50 ml IV Total 1550 ml Output Urine Total 30 ml Daily Weight Change Unsure General: Alert, Oriented X3, Cooperative HEENT: Atraumatic, PERRLA Neck: Supple, No JVD, No Thyromegaly Lungs: Clear to Auscultation, Normal Air Movement Heart: Regular Rate, Normal S1, Normal S2, No Murmurs Abdomen: Normal Bowel Sounds, Soft, No Tenderness, No Hepatosplenomegaly, No Masses Extremities: No Clubbing, No Cyanosis, No Edema, Normal Pulses, No Tenderness/ Swelling Skin: No Rashes, No Breakdown, No Significant Lesion Neuro: Normal Gait, Normal Speech, Strength at 5/5 X4 Ext, Normal Tone, Sensation Intact Psych/Mental Status: Mental Status NL, Mood NL Results Lab Laboratory Tests 11/28/18 14:50 11/29/18 05:45 A/P-Cardiology Admission Diagnosis Non-ST elevation myocardial infarction Coronary artery disease Atrial fibrillation Peripheral arterial disease Urinary tract infection Assessment/Plan Non-ST elevation myocardial infarction, last cardiac catheterization was done by Dr. Davidson in March 2015 reported to have mild to moderate disease in the left coronary system with severe disease in a very small caliber right coronary artery that was not amendable to intervention. Normal left ventricular size and function. Having elevated troponin at this time, could be secondary to sepsis or atrial fibrillation. Continue with conservative management and monitor Acute atrial fibrillation, unknown duration, rate is controlled. I will continue on beta blockers and use heparin drip to reduce the risk of stroke. Monitor closely Anemia, worse today, evaluate stool for occult blood, monitor H&H Peripheral arterial disease, had 70 percent stenosis in the distal right external iliac artery noted at the time of cardiac catheterization in March 2015. Not having any symptoms at this time Extensive peripheral edema, started on Lasix, monitor response Urinary tract infection, managed by primary care team Anemia with history of positive stool for occult blood, starting on heparin and monitoring closely. Hypokalemia, hypomagnesemia, did not receive potassium or magnesium last night , we will arrange for her to receive today Significant hearing loss. Poor memory, she is alert and oriented History of hypertension, monitor blood pressure History of anxiety. Clinical Quality Measures DVT/VTE Risk/Contraindication: Risk Factor Score Per Nursin RFS Level Per Nursing on Admit: 3=High SAMMY VIGIL MD Nov 29, 2018 10:57
[2018-11-29] MEDS ORDERED: POTASSIUM CL 10MEQ/50ML IVPB 50 ML IV SCH (11:00)
[2018-11-29] MEDS: POTASSIUM CL 10MEQ/50ML IVPB 50 ML IV SCH ×4 (11:07→14:59)
[2018-11-29] MEDS: MAGNESIUM 1 GM/100 ML IVPB 100 ML IV SCH ×2 (11:09→12:27)
--- NOTE | 2018-11-29 15:39 | NUR ---
Pastoral care visit.
[2018-11-29] MEDS: RT-ALBUTEROL/IPRATROPIUM 3 ML (DUONEB) VIAL INH PRN (20:29)
[2018-11-29] MEDS: cefTRIAXone 1,000 MG/SWFI 10 ML IV PUSH IV SCH ×2 (20:40)
[2018-11-29] MEDS: ZINC OXIDE 16% OINT (BUTT PASTE) 113 GM TUBE TOP SCH (21:06)
[2018-11-30] VITALS (7 sets, daily range): BP systolic 117–138; BP diastolic 60–77
[2018-11-30] MEDS: HEParin 1000 UNIT/ML BOLUS (FULL THERAPY) IV PRN (01:12)
[2018-11-30 05:12] LABS: HEMOGLOBIN 7.5 G/DL (11.5-16.0); MEAN PLATELET VOLUME 11.3 FL (7.4-10.4); RED CELL DISTRIBUTION WIDTH 17.4 % (10.0-14.5); WHITE BLOOD COUNT 8.4 10^3/uL (4.3-11.0)
[2018-11-30 05:31] LABS: BUN/CREATININE RATIO 15; CALCIUM 7.5 MG/DL (8.5-10.1); CARBON DIOXIDE 18 MMOL/L (21-32); CHLORIDE 109 MMOL/L (98-107); CREATININE SERUM 0.86 MG/DL (0.60-1.30); GFR ESTIMATED > 60; GLUCOSE 107 MG/DL (70-105); MAGNESIUM 1.4 MG/DL (1.8-2.4); POTASSIUM 3.3 MMOL/L (3.6-5.0); SODIUM 135 MMOL/L (135-145)
[2018-11-30] MEDS: CATHETER FLUSH 10 ML SYR IV SCH ×3 (06:23→23:06)
[2018-11-30] MEDS: NS IV 1000 ML 1,000 ML IV SCH ×3 (07:00→15:48)
[2018-11-30] MEDS: PANTOPRAZOLE 40 MG (PROTONIX) TAB PO SCH (07:07)
[2018-11-30] MEDS: RT-ALBUTEROL/IPRATROPIUM 3 ML (DUONEB) VIAL INH SCH ×2 (07:56→20:22)
--- NOTE | 2018-11-30 09:30 | NUR ---
HEPARIN IV DC'D PER ORDER.
--- NOTE | 2018-11-30 09:53 | Cardiology Progress Note ---
Subjective Date Seen by Provider: Nov 30, 2018 Time Seen by Provider: 09:52 Subjective/Events-last exam patient is sitting in bed, feeling better, denied any chest pain Review of Systems General: No Chills, No Night Sweats, No Fatigue, No Malaise, No Appetite, No Other HEENT: No Head Aches, No Visual Changes, No Eye Pain, No Ear Pain, No Dysphasia , No Sinus Congestion, No Post Nasal Drip, No Sore Throat, No Other Pulmonary: No Dyspnea, No Cough, No Pleuritic Chest Pain, No Other Cardiovascular: No: Chest Pain, Palpitations, Orthopnea, Paroxysmal Noc. Dyspnea, Edema, Lt Headedness, Other Focused Exam Lactate Level 11/28/18 14:50: Lactic Acid Level 2.85*H 11/28/18 17:00: Lactic Acid Level 1.76 Objective-Cardiology Exam Last Set of Vital Signs Vital Signs 11/28/18 11/29/18 11/30/18 22:41 20:00 08:46 Temp 98.7 Pulse 101 Resp 20 B/P (MAP) 138/77 (97) Pulse Ox 93 O2 Delivery Room Air O2 Flow Rate 2.00 FiO2 21 Capillary Refill : Less Than 3 Seconds I&O Intake and Output 11/30/18 00:00 Intake Total 1922 ml Output Total 600 ml Balance 1322 ml Intake Oral 920 ml IV Total 1002 ml Output Urine Total 600 ml Daily Weight Change Unsure General: Alert, Oriented X3, Cooperative HEENT: Atraumatic, PERRLA Neck: Supple, No JVD, No Thyromegaly Lungs: Clear to Auscultation, Normal Air Movement Heart: Regular Rate, Normal S1, Normal S2, No Murmurs Abdomen: Normal Bowel Sounds, Soft, No Tenderness, No Hepatosplenomegaly, No Masses Extremities: No Clubbing, No Cyanosis, No Edema, Normal Pulses, No Tenderness/ Swelling Skin: No Rashes, No Breakdown, No Significant Lesion Neuro: Normal Gait, Normal Speech, Strength at 5/5 X4 Ext, Normal Tone, Sensation Intact Psych/Mental Status: Mental Status NL, Mood NL Results Lab Laboratory Tests 11/30/18 04:55 A/P-Cardiology Admission Diagnosis Non-ST elevation myocardial infarction Coronary artery disease Atrial fibrillation Peripheral arterial disease Urinary tract infection Assessment/Plan Non-ST elevation myocardial infarction, last cardiac catheterization was done by Dr. Davidson in March 2015 reported to have mild to moderate disease in the left coronary system with severe disease in a very small caliber right coronary artery that was not amendable to intervention. Normal left ventricular size and function. Having elevated troponin at this time, could be secondary to sepsis or atrial fibrillation. conservative management. No intervention is recommended at this time Acute atrial fibrillation, unknown duration, rate is controlled, unable to tolerate heparin drip due to anemia and positive stool for occult blood, discontinue heparin and use DVT prophylaxis only Anemia, continue to deteriorate, stool for occult blood is positive, managed by primary care physician Peripheral arterial disease, had 70 percent stenosis in the distal right external iliac artery noted at the time of cardiac catheterization in March 2015. Not having any symptoms at this time Extensive peripheral edema, started on Lasix, monitor response Urinary tract infection, managed by primary care team Anemia with history of positive stool for occult blood, starting on heparin and monitoring closely. Hypokalemia, hypomagnesemia, did not receive potassium or magnesium last night , we will arrange for her to receive today Significant hearing loss. Poor memory, she is alert and oriented History of hypertension, monitor blood pressure History of anxiety. Clinical Quality Measures DVT/VTE Risk/Contraindication: Risk Factor Score Per Nursin RFS Level Per Nursing on Admit: 3=High SAMMY VIGIL MD Nov 30, 2018 09:53
[2018-11-30] MEDS ORDERED: ENOXAPARIN 40 MG/0.4 ML (LOVENOX) SYR SQ SCH (10:00)
[2018-11-30] MEDS ORDERED: ENOXAPARIN 40 MG/0.4 ML (LOVENOX) SYR ONE (10:01)
[2018-11-30] MEDS: meTOprolol TARTRATE 25 MG (LOPRESSOR) TABLET PO SCH ×2 (10:05→21:26)
[2018-11-30] MEDS: ASPIRIN E.C. 81 MG (ECOTRIN) TAB PO SCH (10:05)
[2018-11-30] MEDS: ZINC OXIDE 16% OINT (BUTT PASTE) 113 GM TUBE TOP SCH ×3 (10:05→21:26)
--- NOTE | 2018-11-30 12:52 | Progress Note-Hospitalist ---
Subjective HPI/CC On Admission Date Seen by Provider: Nov 30, 2018 Time Seen by Provider: 12:46 CC: UTI with altered mental status HPI: This is a 78-year-old white female clinic patient of Dr. Jaramillo, whom I visited with regarding this patient, who has a past medical history of dementia who presented to the ER via EMS with elevated troponin, hypokalemia, atrial fibrillation, and sacral decubitus ulcer who was unable to get up out of bed at home and patient appears to be in need of a mcc placement. Previously the family refused mcc placement per primary care provider but now apparently is willing to look into that option. Patient is currently sleeping she does open her eyes but she appears to be confused. Subjective/Events-last exam Patient hard of hearing with baseline dementia making history difficult to obtain. She reported that it been several days since her bowels move but staff reported she had a loose brown amelanotic stool this morning and was incontinent. She has been wasn't really confused occasionally talking to her per staff. Focused Exam Lactate Level 11/28/18 14:50: Lactic Acid Level 2.85*H 11/28/18 17:00: Lactic Acid Level 1.76 Objective Exam Vital Signs Vital Signs Date Time Temp Pulse Resp B/P (MAP) Pulse Ox O2 Delivery O2 Flow Rate FiO2 11/30/18 11:23 98.3 86 20 135/68 (90) 95 Room Air 11/29/18 20:00 2.00 11/28/18 22:41 21 Capillary Refill : Less Than 3 Seconds General Appearance: No Apparent Distress, WD/WN, Chronically ill, Thin, Other ( Sleeping) HEENT: PERRL/EOMI Neck: Full Range of Motion, Normal Inspection, Non Tender, Supple, Carotid Bruit Respiratory: Lungs Clear, Normal Breath Sounds, No Accessory Muscle Use, No Respiratory Distress, Crackles (Noted throughout), Decreased Breath Sounds Cardiovascular: No Edema, No Gallop, No JVD, No Murmur, Normal Peripheral Pulses, Irregularly Irregular Gastrointestinal: Normal Bowel Sounds, No Organomegaly, No Pulsatile Mass, Non Tender, Soft Extremity: Normal Capillary Refill, Normal Inspection, Normal Range of Motion, Non Tender, No Calf Tenderness, No Pedal Edema Neurologic/Psychiatric: Disoriented Skin: Normal Color, Warm/Dry Results/Procedures Lab Laboratory Tests 11/30/18 04:55 Patient resulted labs reviewed. Assessment/Plan Assessment and Plan Assess & Plan/Chief Complaint A/P 1. Non-ST segment elevation [place] small vessel coronary disease not amenable to catheter-based intervention. 2. IV heparin being discontinued for patient's underlying atrial fibrillation due to anemia and occult positive blood in the stool. Currently there is no evidence for active GI bleeding we'll continue to monitor blood counts if continuing to drop the patient is amenable to receiving blood products if felt necessary. We'll continue PPI therapy with likely need for future endoscopic evaluation. 3. Combination of dementia and severe presbycusis makes communication very difficult. Clinical Quality Measures DVT/VTE Risk/Contraindication: Risk Factor Score Per Nursin RFS Level Per Nursing on Admit: 3=High AIRAM ESPINOZA MD Nov 30, 2018 12:52
[2018-11-30] MEDS: cefTRIAXone 1,000 MG/SWFI 10 ML IV PUSH IV SCH ×2 (20:27)
[2018-12-01] MEDS: NS IV 1000 ML 1,000 ML IV SCH ×2 (01:07→08:27)
[2018-12-01] MEDS: RT-ALBUTEROL/IPRATROPIUM 3 ML (DUONEB) VIAL INH PRN (01:12)
[2018-12-01 01:31] VITALS: BP 117/68
[2018-12-01] MEDS ORDERED: RT-ALBUTEROL/IPRATROPIUM 3 ML (DUONEB) VIAL INH PRN (01:45)
[2018-12-01 04:00] VITALS: BP 122/65
[2018-12-01] MEDS: PANTOPRAZOLE 40 MG (PROTONIX) TAB PO SCH (06:37)
[2018-12-01] MEDS: CATHETER FLUSH 10 ML SYR IV SCH ×3 (06:38→22:25)
[2018-12-01 07:29] VITALS: BP 141/96
[2018-12-01 08:09] LABS: MEAN PLATELET VOLUME 11.3 FL (7.4-10.4); RED CELL DISTRIBUTION WIDTH 17.6 % (10.0-14.5); WHITE BLOOD COUNT 10.1 10^3/uL (4.3-11.0)
[2018-12-01 08:25] LABS: BUN/CREATININE RATIO 10; CALCIUM 7.4 MG/DL (8.5-10.1); CARBON DIOXIDE 19 MMOL/L (21-32); CHLORIDE 108 MMOL/L (98-107); CREATININE SERUM 0.89 MG/DL (0.60-1.30); GFR ESTIMATED > 60; GLUCOSE 98 MG/DL (70-105); POTASSIUM 2.9 MMOL/L (3.6-5.0); SODIUM 136 MMOL/L (135-145)
[2018-12-01] MEDS: meTOprolol TARTRATE 25 MG (LOPRESSOR) TABLET PO SCH ×2 (08:26→20:44)
[2018-12-01] MEDS: ZINC OXIDE 16% OINT (BUTT PASTE) 113 GM TUBE TOP SCH ×3 (08:27→20:45)
[2018-12-01] MEDS: ASPIRIN E.C. 81 MG (ECOTRIN) TAB PO SCH (08:27)
[2018-12-01] MEDS ORDERED: KCL 10 MEQ TAB (MICRO K) PO NR (09:00)
[2018-12-01] MEDS ORDERED: MAGNESIUM 1 GM/100 ML IVPB 100 ML IV NR (09:00)
[2018-12-01] MEDS: ENOXAPARIN 40 MG/0.4 ML (LOVENOX) SYR SQ SCH (09:32)
--- NOTE | 2018-12-01 10:02 | Progress Note-Hospitalist ---
Subjective HPI/CC On Admission Date Seen by Provider: Dec 01, 2018 Time Seen by Provider: 09:53 CC: UTI with altered mental status HPI: This is a 78-year-old white female clinic patient of Dr. Jaramillo, whom I visited with regarding this patient, who has a past medical history of dementia who presented to the ER via EMS with elevated troponin, hypokalemia, atrial fibrillation, and sacral decubitus ulcer who was unable to get up out of bed at home and patient appears to be in need of a alf placement. Previously the family refused alf placement per primary care provider but now apparently is willing to look into that option. Patient is currently sleeping she does open her eyes but she appears to be confused. Subjective/Events-last exam Patient pleasantly confused no behavioral problems noted by staff. She is alert and able to answer simple questions denying pain or shortness of breath. By mouth intake improving Focused Exam Lactate Level 11/28/18 14:50: Lactic Acid Level 2.85*H 11/28/18 17:00: Lactic Acid Level 1.76 Objective Exam Vital Signs Vital Signs Date Time Temp Pulse Resp B/P (MAP) Pulse Ox O2 Delivery O2 Flow Rate FiO2 12/01/18 07:54 Nasal Cannula 2.00 12/01/18 07:29 99.0 124 18 141/96 (111) 98 12/01/18 01:31 21 Capillary Refill : Less Than 3 SecondsLess Than 3 Seconds General Appearance: No Apparent Distress, WD/WN, Chronically ill, Thin, Other ( Sleeping) HEENT: PERRL/EOMI Neck: Full Range of Motion, Normal Inspection, Non Tender, Supple, Carotid Bruit Respiratory: Chest Non Tender, No Accessory Muscle Use, No Respiratory Distress , Other (Sonorous rhonchi noted throughout with a few dry sounding basilar rales ) Cardiovascular: No Edema, No Gallop, No JVD, No Murmur, Normal Peripheral Pulses, Irregularly Irregular Gastrointestinal: Normal Bowel Sounds, No Organomegaly, No Pulsatile Mass, Non Tender, Soft Extremity: Normal Capillary Refill, Normal Inspection, Normal Range of Motion, Non Tender, No Calf Tenderness, No Pedal Edema Neurologic/Psychiatric: Disoriented Skin: Normal Color, Warm/Dry Results/Procedures Lab Laboratory Tests 12/01/18 07:48 Patient resulted labs reviewed. Assessment/Plan Assessment and Plan Assess & Plan/Chief Complaint A/P 1. Non-ST segment elevation [place] small vessel coronary disease not amenable to catheter-based intervention for which conservative medical management has been recommended by cardiology. 2. IV heparin being discontinued for patient's underlying atrial fibrillation due to anemia and occult positive blood in the stool. Currently there is no evidence for active GI bleeding we'll continue to monitor blood counts if continuing to drop the patient is amenable to receiving blood products if felt necessary. Hemoglobin up from 7.5-8 percent We'll continue PPI therapy considering her frail status with multiple medical comorbidities and advanced dementia this practitioner would not likely recommend endoscopy but conservative medical management as long as counts continue to recover and tinea baby aspirin and hold anticoagulant therapy indefinitely she continues to pose a significant fall risk with anticoagulant therapy likely causing more potential harm than good. 3. Combination of dementia and severe presbycusis makes communication very difficult. 4. Per social worker consult family is hoping for transfer to via [facility] will need to follow-up on this in the morning. Family was not present over the weekend to discuss CODE STATUS issues which needs to be addressed. 5. Blood pressure and heart rate trending up will DC IV fluids. In addition potassium was 2.9 with magnesium of 1.4 we'll give 1 gram mag sulfate IV and 10 mg KCl twice a day by mouth Clinical Quality Measures DVT/VTE Risk/Contraindication: Risk Factor Score Per Nursin RFS Level Per Nursing on Admit: 3=High AIRAM ESPINOZA MD Dec 01, 2018 10:02
--- NOTE | 2018-12-01 10:05 | Cardiology Progress Note ---
Subjective Date Seen by Provider: Dec 01, 2018 Time Seen by Provider: 10:02 Subjective/Events-last exam patient is laying down in bed, feeling better today. No new complaint Review of Systems General: No Chills, No Night Sweats, No Fatigue, No Malaise, No Appetite, No Other HEENT: No Head Aches, No Visual Changes, No Eye Pain, No Ear Pain, No Dysphasia , No Sinus Congestion, No Post Nasal Drip, No Sore Throat, No Other Pulmonary: No Dyspnea, No Cough, No Pleuritic Chest Pain, No Other Cardiovascular: No: Chest Pain, Palpitations, Orthopnea, Paroxysmal Noc. Dyspnea, Edema, Lt Headedness, Other Focused Exam Lactate Level 11/28/18 14:50: Lactic Acid Level 2.85*H 11/28/18 17:00: Lactic Acid Level 1.76 Objective-Cardiology Exam Last Set of Vital Signs Vital Signs 12/01/18 12/01/18 12/01/18 01:31 07:29 07:54 Temp 99.0 Pulse 124 Resp 18 B/P (MAP) 141/96 (111) Pulse Ox 98 O2 Delivery Nasal Cannula O2 Flow Rate 2.00 FiO2 21 Capillary Refill : Less Than 3 SecondsLess Than 3 Seconds I&O Intake and Output 12/01/18 00:00 Intake Total 3350 ml Output Total 575 ml Balance 2775 ml Intake Oral 700 ml IV Total 2650 ml Output Urine Total 575 ml # Bowel Movements 5 General: Alert, Oriented X3, Cooperative HEENT: Atraumatic, PERRLA Neck: Supple, No JVD, No Thyromegaly Lungs: Clear to Auscultation, Normal Air Movement Heart: Normal S1, Normal S2, No Murmurs, Other (tachycardia) Abdomen: Normal Bowel Sounds, Soft, No Tenderness, No Hepatosplenomegaly, No Masses Extremities: No Clubbing, No Cyanosis, No Edema, Normal Pulses, No Tenderness/ Swelling Skin: No Rashes, No Breakdown, No Significant Lesion Neuro: Normal Gait, Normal Speech, Strength at 5/5 X4 Ext, Normal Tone, Sensation Intact Psych/Mental Status: Mental Status NL, Mood NL Results Lab Laboratory Tests 12/01/18 07:48 A/P-Cardiology Admission Diagnosis Non-ST elevation myocardial infarction Coronary artery disease Atrial fibrillation Peripheral arterial disease Urinary tract infection Assessment/Plan Non-ST elevation myocardial infarction, last cardiac catheterization was done by Dr. Davidson in March 2015 reported to have mild to moderate disease in the left coronary system with severe disease in a very small caliber right coronary artery that was not amendable to intervention. Normal left ventricular size and function. Having elevated troponin at this time, could be secondary to sepsis or atrial fibrillation. conservative management. No intervention is recommended at this time Paroxysmal acute atrial fibrillation, currently in sinus rhythm, I will reevaluate 12-lead EKG and monitor Anemia, unable to tolerate heparin drip with positive stool for occult blood and worsening anemia. It was discontinued. We'll continue monitoring Peripheral arterial disease, had 70 percent stenosis in the distal right external iliac artery noted at the time of cardiac catheterization in March 2015. Not having any symptoms at this time Extensive peripheral edema, started on Lasix, monitor response Urinary tract infection, managed by primary care team Anemia with history of positive stool for occult blood, starting on heparin and monitoring closely. Hypokalemia, hypomagnesemia, continue to replace and monitor Significant hearing loss. Poor memory, she is alert and oriented History of hypertension, monitor blood pressure History of anxiety. Clinical Quality Measures DVT/VTE Risk/Contraindication: Risk Factor Score Per Nursin RFS Level Per Nursing on Admit: 3=High SAMMY VIGIL MD Dec 01, 2018 10:05
[2018-12-01] MEDS: RT-ALBUTEROL/IPRATROPIUM 3 ML (DUONEB) VIAL INH SCH ×3 (10:24→19:48)
[2018-12-01 12:06] VITALS: BP 130/74
[2018-12-01 16:00] VITALS: BP 98/71
[2018-12-01] MEDS: KCL 10 MEQ TAB (MICRO K) PO SCH (16:49)
[2018-12-01 19:52] VITALS: BP 152/65
[2018-12-01] MEDS: cefTRIAXone 1,000 MG/SWFI 10 ML IV PUSH IV SCH ×2 (20:43)
[2018-12-02] VITALS: BP 114/67
[2018-12-02 04:00] VITALS: BP 129/75
[2018-12-02 06:32] LABS: HEMOGLOBIN 7.8 G/DL (11.5-16.0); MEAN PLATELET VOLUME 11.3 FL (7.4-10.4); RED CELL DISTRIBUTION WIDTH 17.7 % (10.0-14.5); WHITE BLOOD COUNT 9.9 10^3/uL (4.3-11.0)
[2018-12-02] MEDS: CATHETER FLUSH 10 ML SYR IV SCH ×3 (06:47→20:36)
[2018-12-02] MEDS: PANTOPRAZOLE 40 MG (PROTONIX) TAB PO SCH (06:47)
[2018-12-02] MEDS: KCL 10 MEQ TAB (MICRO K) PO SCH ×2 (06:47→18:08)
[2018-12-02 07:03] LABS: BUN/CREATININE RATIO 9; CALCIUM 7.4 MG/DL (8.5-10.1); CARBON DIOXIDE 19 MMOL/L (21-32); CHLORIDE 109 MMOL/L (98-107); CREATININE SERUM 0.76 MG/DL (0.60-1.30); GFR ESTIMATED > 60; GLUCOSE 97 MG/DL (70-105); MAGNESIUM 1.1 MG/DL (1.8-2.4); POTASSIUM 3.1 MMOL/L (3.6-5.0); SODIUM 137 MMOL/L (135-145)
[2018-12-02] MEDS: RT-ALBUTEROL/IPRATROPIUM 3 ML (DUONEB) VIAL INH SCH ×4 (07:06→19:01)
[2018-12-02 08:00] VITALS: BP 131/80
--- NOTE | 2018-12-02 08:59 | Progress Note-Cardiology ---
Cardiology SOAP Progress Note Subjective: Sitting up in bed. Denies any c/o CP, palpitations, syncope or dyspnea. Reports occ productive cough. Objective: I&O/Vital Signs 12/02/18 12/02/18 12/02/18 12/02/18 00:00 01:00 04:00 07:00 Temp 98.9 98.8 Pulse 81 96 98 118 Resp 16 16 B/P (MAP) 114/67 (83) 129/75 (93) Pulse Ox 97 96 O2 Delivery Room Air Room Air 12/02/18 12/02/18 07:07 08:00 Temp 100.4 Pulse 101 Resp 16 B/P (MAP) 131/80 (97) Pulse Ox 92 96 O2 Delivery Room Air Room Air 12/02/18 00:00 Intake Total 820 ml Output Total 750 ml Balance 70 ml Weight (Pounds): 116 Weight (Ounces): 9.0 Weight (Calculated Kilograms): 52.757411 Constitutional: other (Oriented to self and place) Respiratory: No accessory muscle use, No respiratory distress; chest expansion is symmetric, chest is bilaterally symmetric, rhonchi (scattered), other ( coarse breath sounds) Cardiovascular: irregularly irregular; No JVD; S1 and S2 Gastrointestional: No tender; soft, round, audible bowel sounds Extremities: no lower extremity edema bilateral Neurologic/Psychiatric: grossly intact Skin: warm/dry, ulcerations (stage II decubitus ulcer to the coccyx. There is maceration and skin breakdown on the buttocks bilateral as well as in the periareolar.), other (redness noted to bilateral feet and does have scattered excoriations on her body.) Results/Procedures: Labs Laboratory Tests 12/02/18 06:03: White Blood Count 9.9, Red Blood Count 3.00L, Hemoglobin 7.8L, Hematocrit 25L, Mean Corpuscular Volume 82, Mean Corpuscular Hemoglobin 26, Mean Corpuscular Hemoglobin Concent 32, Red Cell Distribution Width 17.7H, Platelet Count 253, Mean Platelet Volume 11.3H, Sodium Level 137, Potassium Level 3.1L, Chloride Level 109H, Carbon Dioxide Level 19L, Anion Gap 9, Blood Urea Nitrogen 7, Creatinine 0.76, Estimat Glomerular Filtration Rate > 60, BUN/Creatinine Ratio 9 , Glucose Level 97, Calcium Level 7.4L, Magnesium Level 1.1L Microbiology 11/28/18 Blood Culture - Preliminary, Resulted No growth 11/28/18 Influenza Types A,B Antigen (MERARY) - Final, Complete 11/28/18 Urine Culture - Final, Complete YEAST A/P: Assessment: Non-ST elevation myocardial infarction, last cardiac catheterization in March 2015 showed mild to moderate disease in the left coronary system with severe disease in a very small caliber right coronary artery that was not amendable to intervention. Normal left ventricular size and function. Elevated troponin at this time, probably related to sepsis and/or atrial fibrillation with RVR (Type 2 [place]) Echocardiogram of 11-29-[address] Saenz showed LVEF 50-55%. Mod MR. Mild to mod TR. PASP 45 mmHg. Paroxysmal acute atrial fibrillation - converted to SR - but has converted back to a-fib (12-02-18) - rate not well controlled Anemia, suspected GI bleed, holding off on OAC until source of bleeding has been determined and treated - management per medical services. Peripheral arterial disease, had 70% stenosis in the distal right external iliac artery noted at the time of cardiac catheterization in March 2015. LE edema - improved Urinary tract infection, managed by primary care team Hypokalemia, hypomagnesemia - replace Significant hearing loss. Poor memory, she is alert and oriented HTN History of anxiety. Plan: Converted by to a-fib this morning - rate not well controlled. We will start Cardizem CD 120mg now and daily. The other issue is that of OAC - her H/H is trending downward and she has had an occult (+) stool, probable GI bleed. She is at risk for stroke, however d/t anemia she is not a good candidate for OAC. We will hold off for now until source of bleeding has been determined and treated. Management of anemia is per medical services. Continue ASA for now d/t known h/o CAD Replace electrolytes Monitor lab closely Physician Assessment Physician Assessment Notes gen weakness Denies cp or palp or syncope or shortness of breath Cor irreg Lungs: diminished air entry at the bases Ext: no c/c/e A&R * As documented in our note above that I updated (italics) * I reviewed the records of this hospitalization * Complex management due to competing issues (need for OAC for stroke prophylaxis and the need to hold OAC because of bleed-related anemia) * Monitor labs closely JERMAN MARVIN [employer] Dec 02, 2018 08:59 BRIANA SHAH MD FACP FAC CCDS Dec 02, 2018 09:53
[2018-12-02] MEDS ORDERED: DILTIAZEM 240 MG (CARDIZEM CD) CAP PO NR (09:15)
[2018-12-02] MEDS ORDERED: KCL 20 MEQ TAB (K-DUR) PO NR (09:15)
[2018-12-02] MEDS: ZINC OXIDE 16% OINT (BUTT PASTE) 113 GM TUBE TOP SCH ×3 (09:36→20:36)
[2018-12-02] MEDS: meTOprolol TARTRATE 25 MG (LOPRESSOR) TABLET PO SCH ×2 (09:38→20:36)
[2018-12-02] MEDS: ASPIRIN E.C. 81 MG (ECOTRIN) TAB PO SCH (09:38)
--- NOTE | 2018-12-02 10:07 | Progress Note-Hospitalist ---
Subjective HPI/CC On Admission Date Seen by Provider: Dec 02, 2018 Time Seen by Provider: 10:02 CC: UTI with altered mental status HPI: This is a 78-year-old white female clinic patient of Dr. Jaramillo, whom I visited with regarding this patient, who has a past medical history of dementia who presented to the ER via EMS with elevated troponin, hypokalemia, atrial fibrillation, and sacral decubitus ulcer who was unable to get up out of bed at home and patient appears to be in need of a correction placement. Previously the family refused correction placement per primary care provider but now apparently is willing to look into that option. Patient is currently sleeping she does open her eyes but she appears to be confused. Subjective/Events-last exam Pt is lying in bed eating breakfast. Pleasantly confused. No complaints or concerns. Objective Exam Vital Signs Vital Signs Date Time Temp Pulse Resp B/P (MAP) Pulse Ox O2 Delivery O2 Flow Rate FiO2 12/02/18 13:00 80 12/02/18 11:30 94 Room Air 12/02/18 08:00 100.4 16 131/80 (97) 12/01/18 20:00 2.00 12/01/18 01:31 21 Capillary Refill : Less Than 3 SecondsLess Than 3 Seconds General Appearance: No Apparent Distress, Chronically ill, Thin Respiratory: No Accessory Muscle Use, No Respiratory Distress, Rhonci Cardiovascular: No Murmur, Normal Peripheral Pulses, Irregularly Irregular Gastrointestinal: Normal Bowel Sounds, Non Tender, Soft Extremity: No Calf Tenderness, No Pedal Edema Neurologic/Psychiatric: Disoriented Skin: Ecchymosis (on forehead) Results/Procedures Lab Laboratory Tests 12/02/18 06:03 Patient resulted labs reviewed. Assessment/Plan Assessment and Plan Assess & Plan/Chief Complaint A/P 1. NSTEMI- Cardiology consulted small vessel coronary disease not amenable to catheter-based intervention for which conservative medical management has been recommended by cardiology. 2. UTI- Not sepsis, continue on Rocephin, add diflucan for yeast on culture, blood cx NGTD 3. Atrial fibrillation- Cardiology managing as well. Start on Diltiazem today in addition to metopolol 4. Anemia- normocytic, FOBT positive, continue PPI, surgery consulted for evaluation and possible scope given a-fib and potential need for anticoagulation - will need to consider termite treater prognosis and risks of anticoagulation 5. Combination of dementia and severe presbycusis- reorient as needed, will [facility] placement upon discharge, adoption social worker consulted 6. Hypomagnesemia- replaced this AM with 4g by cardiology 7. Hypokalemia- started on supplementation yesterday and another 40meq ordered this AM 8. Stage II decubitus ulcer- Wound care consulted, appreciate recs Clinical Quality Measures DVT/VTE Risk/Contraindication: Risk Factor Score Per Nursin RFS Level Per Nursing on Admit: 3=High VALERI EDWARDS MD Dec 02, 2018 10:07
--- NOTE | 2018-12-02 10:17 | NUR ---
CM/SS, respond to consult for residential home placement. Visited with son Bony Quinones, he has already gone to prearrange placement with [facility]. Assessment Clinician completed referral, await confirmation of acceptance. GREG/Nettie assisted Bony with a [employer] application to assist with patient funding for anticipated terminal worker care.
[2018-12-02] MEDS ORDERED: fluCOnazole (DIFLUCAN) 100 MG TAB PO NR (10:30)
[2018-12-02] MEDS ORDERED: DILTIAZEM 120 MG (CARDIZEM CD) CAP PO NR (10:54)
[2018-12-02] MEDS: MAGNESIUM 1 GM/100 ML IVPB 100 ML IV SCH ×4 (11:15→14:16)
[2018-12-02] MEDS: ENOXAPARIN 40 MG/0.4 ML (LOVENOX) SYR SQ SCH (11:15)
[2018-12-02 12:00] VITALS: BP 116/63
[2018-12-02] MEDS ORDERED: LISI10TA2 PO (13:47)
[2018-12-02] MEDS ORDERED: MEMA5TAB16 PO (13:47)
[2018-12-02] MEDS ORDERED: DONE5TAB30 PO (13:47)
[2018-12-02] MEDS ORDERED: OXYB5TAB9 PO (13:47)
[2018-12-02] MEDS ORDERED: FERR-84 PO (14:11)
[2018-12-02] MEDS ORDERED: ASPI-983 PO (14:11)
--- NOTE | 2018-12-02 14:12 | NUR ---
CALLED AND SPOKE WITH THE PATIENTS SON RAUL ABOUT MEDICATIONS. I HAD A LIST OF WHAT HAS BEEN FILLED RECENTLY AT [facility] AND WENT OVER THAT WITH HIM. HE VERIFIED HOW SHE TAKES THE MEDICATIONS AT HOME. [facility] FILLED: 2-20-19 LISINOPRIL 10MG DAILY #30 (SON STATES THIS WAS STOPPED BY DR. GOLD) 2-20-19 DONEPEZIL 5MG DAILY #30 (STATES THIS WAS ONLY FOR 30 DAYS AND IS NOW GONE) 2-20-19 OXYBUTYNIN 5MG BID #60 2-20-19 CIPRO 500MG BID #10 (FINISHED) 2-20-19 MEMANTINE 5MG DAILY #30 (STATES THIS WAS ONLY FOR 30 DAYS AND IS NOW GONE) 2-20-19 IRON 325MG Q48H (NOT PICKED UP- TAKES OTC) 3-5-19 CIPRO 500MG BID #18 (FINISHED) 3-5-19 FLAGYL 500MG TID #27 (FINISHED) OTC MEDS: ASPIRIN 81MG DAILY IRON EVERY OTHER DAY
[2018-12-02] MEDS ORDERED: BISACODYL 5 MG (DULCOLAX) TABLET PO NR ×2 (15:15→18:00)
[2018-12-02] MEDS ORDERED: POLYETHYLENE GLYCOL 17 GM (MIRALAX) PACK PO NR (15:15)
[2018-12-02 15:35] VITALS: BP 116/63
--- NOTE | 2018-12-02 16:34 | Consultation ---
History of Present Illness History of Present Illness Patient Consulted On(ramón/time) 12/02/18 16:22 Time Seen by Provider: 14:02 Reason for Visit: coronary artery disease History of Present Illness Surgery asked to consult regarding Anemia, Hemoccult positive, possible need for anti-coagulation. HPI per IM: This is a 78-year-old white female clinic patient of Dr. Jaramillo, whom I visited with regarding this patient, who has a past medical history of dementia who presented to the ER via EMS with elevated troponin, hypokalemia, atrial fibrillation, and sacral decubitus ulcer who was unable to get up out of bed at home and patient appears to be in need of a [place]. [place] the [place] primary care provider but now apparently is willing to look into that option. Patient is currently sleeping she does open her eyes but she appears to be confused. Pt is slightly confused but also very hard of hearing. She seems to be able to answer some questions; her sons are at the bedside. She has never had any scopes before (according to sons) and does not remember seeing bloody BM's. According to the nurse they have been very dark and possibly getting darker. She does take an ASA daily, denies abdominal pain. No one is sure if she has been told before this that her blood level is low. Allergies and Home Medications Allergies Coded Allergies: propoxyphene (Unverified Allergy, Unknown, 03/22/15) Home Medications Aspirin 81 Mg Tablet.dr, 81 MG PO DAILY, (Reported) Ferrous Sulfate 325 Mg Tablet, 325 MG PO Q48H, (Reported) Oxybutynin Chloride 5 Mg Tablet, 5 MG PO BID, (Reported) Patient Home Medication List Home Medication List Reviewed: Yes Past Enpgwax-Szwulm-Vnpfyu Hx Patient Social History Alcohol Use: Denies Use Recreational Drug Use: No Smoking Status: Unknown if Ever Smoked Former Smoker, Quit: Dec 11, 2002 Type Used: Electronic/Vapor Recent Foreign Travel: No Contact w/Someone Who Travel: No Recent Infectious Disease Expo: No Immunizations Up To Date Tetanus Booster (TDap): Unknown Surgeries History of Surgeries: No Respiratory History of Respiratory Disorde: No Cardiovascular History of Cardiac Disorders: Yes (NON-STEMI, NO CARDIAC CATH-TREATED CONSERVATIVELY) Cardiac Disorders: Aneurysm, Heart Attack, High Cholesterol, Hypertension Neurological History of Neurological Disord: Yes (POOR MEMORY) Neurological Disorders: Dementia 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 System Hx 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 Disorders: No NURSE CARE MANAGER History: Menopausal Genitourinary History of Genitourinary Disor: No Gastrointestinal History of Gastrointestinal Di: Yes (CHRONIC DIARRHEA WITH FECAL INCONTINENCE) Gastrointestinal Disorders: Chronic Diarrhea Musculoskeletal History of Musculoskeletal Dis: No Endocrine History of Endocrine Disorders: No HEENT History of HEENT Disorders: No Cancer History of Cancer: Yes Cancer: Ovarian Psychosocial History of Psychiatric Problem: No Integumentary History of Skin or Integumenta: No Blood Transfusions History of Blood Disorders: No Family Medical History Significant Family History: Hypertension, Stroke Family Medial History: Alcoholism 19 FATHER BRAIN ANEURYSM G8 SISTER Completed stroke G8 SISTER Hypertension 19 MOTHER Review of Systems-General ROS-Unable to Obtain: pt confused Physical Exam-General Problems Physical Exam Vital Signs Vital Signs - First Documented 11/28/18 11/28/18 14:35 22:41 Temp 97.4 Pulse 127 Resp 13 B/P (MAP) 130/80 (97) Pulse Ox 94 O2 Delivery Nasal Cannula O2 Flow Rate 2.00 FiO2 21 Capillary Refill : Less Than 3 SecondsLess Than 3 Seconds General Appearance: WD/WN, no apparent distress Eyes: Bilateral Eye PERRL, Bilateral Eye EOMI HEENT: pharynx normal; No scleral icterus (R), No scleral icterus (L) Neck: supple; No thyromegaly Respiratory: chest non-tender, lungs clear, normal breath sounds, no respiratory distress, no accessory muscle use, other (pt has some upper respiratory, crackles) Cardiovascular: no murmur, irregularly irregular Gastrointestinal: normal bowel sounds, non tender, soft, no organomegaly, no pulsatile mass Back: no CVA tenderness, no vertebral tenderness Extremities: no pedal edema, no calf tenderness, normal capillary refill Neurologic/Psychiatric: glassware finisher II-XII nml as tested, no motor/sensory deficits Skin: ecchymosis (on face, pt denies fall or trauma to face) Lymphatic: no adenopathy (neck, axilla or groin) Data Review Labs Laboratory Tests 12/02/18 06:03: White Blood Count 9.9, Red Blood Count 3.00L, Hemoglobin 7.8L, Hematocrit 25L, Mean Corpuscular Volume 82, Mean Corpuscular Hemoglobin 26, Mean Corpuscular Hemoglobin Concent 32, Red Cell Distribution Width 17.7H, Platelet Count 253, Mean Platelet Volume 11.3H, Sodium Level 137, Potassium Level 3.1L, Chloride Level 109H, Carbon Dioxide Level 19L, Anion Gap 9, Blood Urea Nitrogen 7, Creatinine 0.76, Estimat Glomerular Filtration Rate > 60, BUN/Creatinine Ratio 9 , Glucose Level 97, Calcium Level 7.4L, Magnesium Level 1.1L Microbiology 11/28/18 Blood Culture - Preliminary, Resulted No growth 11/28/18 Influenza Types A,B Antigen (MERARY) - Final, Complete 11/28/18 Urine Culture - Final, Complete YEAST Assessment/Plan Assessment/Plan Assessment/Plan Anemia Hemoccult + Dementia Hypokalemia Atrial fibrillation Plan is to prep pt and do EGD and colonoscopy tomorrow; in anticipation of possible anti-coagulation and in the face of the anemia. Discussed with the sons the risks and complications; not limited to pain, bleeding, infection, and even possible intestinal perforation. All questions answered to their satisfaction. Clinical Quality Measures DVT/VTE Risk/Contraindication: Risk Factor Score Per Nursin RFS Level Per Nursing on Admit: 3=High RICHIE SCHMITT DO Dec 02, 2018 16:34
[2018-12-02 19:20] VITALS: BP 113/59
[2018-12-02] MEDS: cefTRIAXone 1,000 MG/SWFI 10 ML IV PUSH IV SCH ×2 (20:36)
[2018-12-03] VITALS (7 sets, daily range): BP systolic 107–173; BP diastolic 64–89
[2018-12-03 06:10] LABS: HEMOGLOBIN 7.8 G/DL (11.5-16.0); MEAN PLATELET VOLUME 11.1 FL (7.4-10.4); RED CELL DISTRIBUTION WIDTH 18.4 % (10.0-14.5)
[2018-12-03 06:28] LABS: BUN/CREATININE RATIO 6; CALCIUM 7.6 MG/DL (8.5-10.1); CARBON DIOXIDE 20 MMOL/L (21-32); CHLORIDE 108 MMOL/L (98-107); CREATININE SERUM 0.78 MG/DL (0.60-1.30); GFR ESTIMATED > 60; GLUCOSE 95 MG/DL (70-105); MAGNESIUM 1.7 MG/DL (1.8-2.4); POTASSIUM 3.4 MMOL/L (3.6-5.0); SODIUM 135 MMOL/L (135-145)
[2018-12-03] MEDS: CATHETER FLUSH 10 ML SYR IV SCH ×3 (06:37→21:14)
[2018-12-03] MEDS ORDERED: MAGNESIUM CITRATE 300 ML BTL PO NR (07:00)
[2018-12-03] MEDS: RT-ALBUTEROL/IPRATROPIUM 3 ML (DUONEB) VIAL INH SCH ×4 (07:08→19:21)
[2018-12-03] MEDS: PANTOPRAZOLE 40 MG (PROTONIX) TAB PO SCH (08:07)
[2018-12-03] MEDS: KCL 10 MEQ TAB (MICRO K) PO SCH ×2 (08:07→18:25)
[2018-12-03] MEDS ORDERED: KCL 20 MEQ TAB (K-DUR) PO NR (08:30)
--- NOTE | 2018-12-03 08:30 | Progress Note-Cardiology ---
Cardiology SOAP Progress Note Subjective: Sitting up in a recliner at the bedside. Denies any c/o CP, dyspnea or palpitations. Objective: I&O/Vital Signs 12/03/18 12/03/18 12/03/18 12/03/18 04:00 07:00 07:09 08:00 Temp 99.3 Pulse 77 83 84 Resp 18 20 B/P (MAP) 142/79 (100) 134/73 (93) Pulse Ox 95 97 97 O2 Delivery Nasal Cannula Nasal Cannula Nasal Cannula O2 Flow Rate 2.00 2.00 2.00 12/03/18 12/03/18 12/03/18 08:00 10:12 14:42 Temp 97.2 Pulse 82 Resp 18 B/P (MAP) 153/68 (96) Pulse Ox 94 95 O2 Delivery Nasal Cannula Nasal Cannula Room Air O2 Flow Rate 2.00 2.00 12/03/18 00:00 Intake Total 1780 ml Output Total 1250 ml Balance 530 ml Weight (Pounds): 116 Weight (Ounces): 9.0 Weight (Calculated Kilograms): 52.314783 Constitutional: other (Oriented to self and place) Respiratory: No accessory muscle use, No respiratory distress; chest expansion is symmetric, chest is bilaterally symmetric, rhonchi (scattered), other ( coarse breath sounds) Cardiovascular: regular rate-rhythm; No JVD; S1 and S2 Gastrointestional: No tender; soft, round, audible bowel sounds Extremities: no lower extremity edema bilateral Neurologic/Psychiatric: grossly intact Skin: warm/dry, ulcerations (stage II decubitus ulcer to the coccyx. There is maceration and skin breakdown on the buttocks bilateral as well as in the periareolar.), other (redness noted to bilateral feet and does have scattered excoriations on her body.) Results/Procedures: Labs Laboratory Tests 12/03/18 05:39: White Blood Count 9.0, Red Blood Count 3.06L, Hemoglobin 7.8L, Hematocrit 25L, Mean Corpuscular Volume 82, Mean Corpuscular Hemoglobin 25, Mean Corpuscular Hemoglobin Concent 31L, Red Cell Distribution Width 18.4H, Platelet Count 293, Mean Platelet Volume 11.1H, Sodium Level 135, Potassium Level 3.4L, Chloride Level 108H, Carbon Dioxide Level 20L, Anion Gap 7, Blood Urea Nitrogen 5L, Creatinine 0.78, Estimat Glomerular Filtration Rate > 60, BUN/Creatinine Ratio 6 , Glucose Level 95, Calcium Level 7.6L, Magnesium Level 1.7L Microbiology 11/28/18 Blood Culture - Preliminary, Resulted No growth 11/28/18 Influenza Types A,B Antigen (MERARY) - Final, Complete 11/28/18 Urine Culture - Final, Complete YEAST Laboratory Tests 12/02/18 06:03 12/03/18 05:39 A/P: Assessment: Elevated troponin at this time, probably related to sepsis and/or atrial fibrillation with RVR (Type 2 MA) CAD, last cardiac catheterization in March 2015 showed mild to moderate disease in the left coronary system with severe disease in a very small caliber right coronary artery that was not amendable to intervention. Normal left ventricular size and function. Echocardiogram of 11-29-[address] Saenz showed LVEF 50-55%. Mod MR. Mild to mod TR. PASP 45 mmHg. Paroxysmal acute atrial fibrillation - currently rate-controlled Anemia, suspected GI bleed, holding off on OAC until source of bleeding has been determined and treated - management per medical services. Peripheral arterial disease, had 70% stenosis in the distal right external iliac artery noted at the time of cardiac catheterization in March 2015. LE edema - improved Urinary tract infection, managed by primary care team Hypokalemia, hypomagnesemia - replace Significant hearing loss. Poor memory, she is alert and oriented HTN History of anxiety. Plan: Converted back to SR - continue current medication regimen The other issue is that of OAC - her H/H is trending downward and she has had an occult (+) stool, probable GI bleed. She is at risk for stroke, however d/t anemia she is not a good candidate for OAC. We will hold off for now until source of bleeding has been determined and treated. Management of anemia is per medical services. Continue ASA for now d/t known h/o CAD Replace electrolytes Monitor lab closely EGD/colo planned for later today Physician Assessment Physician Assessment No cp or palp or syncope Gen weakness and malaise Lungs: fair to good air entry, diminished at the bases Cor: irreg, rate-controlled (approx 80 bpm) Ext: no c/c/e A&R * As documented in our note above that I updated (italics) and as noted below * Continue current regimen * Replenish lytes * Monitor labs * We're awaiting details of endoscopy findings/interventions today * I spoke with her and her sons and explained her CV issues to them JERMAN MARVIN ORIENTATION & MOBILITY SPECIALIST Dec 03, 2018 08:30 BRIANA SHAH MD [facility] Dec 03, 2018 14:53
[2018-12-03] MEDS: MAGNESIUM 1 GM/100 ML IVPB 100 ML IV SCH ×2 (09:12→10:30)
--- NOTE | 2018-12-03 09:43 | NUR ---
SCD removed for out of bed activity Addendum: 12/03/18 at [id number] by KRISTYN ESPARZA RN Amended: Links added.
[2018-12-03] MEDS ORDERED: LACTATED RINGERS 1,000 ML IV PRN (10:24)
[2018-12-03] MEDS: ZINC OXIDE 16% OINT (BUTT PASTE) 113 GM TUBE TOP SCH ×3 (10:27→21:13)
--- NOTE | 2018-12-03 11:47 | Progress Note-Hospitalist ---
Subjective HPI/CC On Admission Date Seen by Provider: Dec 03, 2018 Time Seen by Provider: 11:41 CC: UTI with altered mental status HPI: This is a 78-year-old white female clinic patient of Dr. Jaramillo, whom I visited with regarding this patient, who has a past medical history of dementia who presented to the ER via EMS with elevated troponin, hypokalemia, atrial fibrillation, and sacral decubitus ulcer who was unable to get up out of bed at home and patient appears to be in need of a senior care placement. Previously the family refused senior care placement per primary care provider but now apparently is willing to look into that option. Patient is currently sleeping she does open her eyes but she appears to be confused. Subjective/Events-last exam Pt is lying in bed sleeping. Very hard of hearing. No complaints though no sure she understands question. Objective Exam Vital Signs Vital Signs Date Time Temp Pulse Resp B/P (MAP) Pulse Ox O2 Delivery O2 Flow Rate FiO2 12/03/18 10:12 94 Nasal Cannula 2.00 12/03/18 08:00 99.3 84 20 134/73 (93) 12/01/18 01:31 21 Capillary Refill : Less Than 3 SecondsLess Than 3 Seconds General Appearance: No Apparent Distress, Chronically ill, Thin Respiratory: Lungs Clear, No Accessory Muscle Use, No Respiratory Distress Cardiovascular: Regular Rate, Rhythm, No Murmur, Normal Peripheral Pulses Gastrointestinal: Normal Bowel Sounds, Non Tender, Soft Neurologic/Psychiatric: Alert, Disoriented Skin: Ecchymosis (on forehead) Results/Procedures Lab Laboratory Tests 12/03/18 05:39 Patient resulted labs reviewed. Assessment/Plan Assessment and Plan Assess & Plan/Chief Complaint A/P 1. NSTEMI- Cardiology consulted, appreciate recs, small vessel coronary disease not amenable to catheter-based intervention for which conservative medical management has been recommended 2. UTI- Not sepsis, continue on Rocephin and diflucan for yeast on culture, blood cx NGTD 3. Atrial fibrillation- Cardiology managing as well. Continue Dilt and Metoprolol 4. Anemia- normocytic, FOBT positive, continue PPI, surgery consulted and planning on endoscopy evaluation today; will need to consider termite control technician prognosis and risks of anticoagulation 5. Combination of dementia and severe presbycusis- reorient as needed, will need NH placement upon discharge, mental health social worker consulted, [facility] to assess pt today 6. Hypomagnesemia- replaced again this AM with 2g 7. Hypokalemia- continue supplementation 8. Stage II decubitus ulcer- Wound care consulted, appreciate recs Clinical Quality Measures DVT/VTE Risk/Contraindication: Risk Factor Score Per Nursin RFS Level Per Nursing on Admit: 3=High VALERI EDWARDS MD Dec 03, 2018 11:47
[2018-12-03] MEDS ORDERED: PROPOFOL INJECTION 50 ML IV ONE (12:39)
[2018-12-03] MEDS ORDERED: LACTATED RINGERS 1,000 ML IV ONE ×2 (12:58→15:15)
--- NOTE | 2018-12-03 14:40 | NUR ---
Patient taken by wheel chair for EGD and Colonoscopy Addendum: 12/03/18 at 1558 by KRISTYN ESPARZA RN at [phone]
--- NOTE | 2018-12-03 14:40 | NUR ---
Patient returned to room via wheelchair, patient helped to bed verified comfort call light within reach and family present
[2018-12-03] MEDS ORDERED: KCL 20 MEQ TAB (K-DUR) PO ONE ×2 (15:19)
[2018-12-03] MEDS: DILTIAZEM 120 MG (CARDIZEM CD) CAP PO SCH (15:27)
[2018-12-03] MEDS: fluCOnazole (DIFLUCAN) 100 MG TAB PO SCH (15:27)
[2018-12-03] MEDS: meTOprolol TARTRATE 25 MG (LOPRESSOR) TABLET PO SCH ×2 (15:28→21:13)
[2018-12-03] MEDS: ASPIRIN E.C. 81 MG (ECOTRIN) TAB PO SCH (15:50)
--- NOTE | 2018-12-03 16:57 | NUR ---
CM/SS. Patient has been accepted to new Medicare skilled admission with [facility] once medically stable. She will need orders for PT, OT, ST, any specific wound care, special diet, nursing. CARE Assessment completed with patient and her son, Bony Quinones. Faxed to [facility] and to [facility], in packet to accompany patient. Bony Quinones, Son [address], [address] [place], [place] [phone] Kassy Ruelas, Daughter Tara Murphy, [place], [place] [phone]
--- NOTE | 2018-12-03 17:38 | Progress Note ---
Subjective Time Seen by a Provider: 17:02 Subjective/Events-last exam Pt seen, sitting up in bed and doing fine. Her sons are at bedside. She is not having any problems after colonoscopy and denies abdominal pain. Review of Systems General: No Chills, No Night Sweats Pulmonary: No Dyspnea, No Cough Cardiovascular: No: Chest Pain, Palpitations Gastrointestinal: No: Nausea, Vomiting, Abdominal Pain Genitourinary: No Dysuria, No Frequency Objective Exam Vital Signs Date Time Temp Pulse Resp B/P (MAP) Pulse Ox O2 Delivery O2 Flow Rate FiO2 12/03/18 15:46 96.7 81 20 173/89 (117) 93 Room Air 12/03/18 14:42 97.2 82 18 153/68 (96) 95 Room Air 12/03/18 10:12 94 Nasal Cannula 2.00 12/03/18 08:00 Nasal Cannula 2.00 12/03/18 08:00 99.3 84 20 134/73 (93) 97 Nasal Cannula 2.00 12/03/18 07:09 97 Nasal Cannula 2.00 12/03/18 07:00 83 12/03/18 04:00 77 18 142/79 (100) 95 Nasal Cannula 2.00 12/03/18 01:00 75 12/03/18 00:14 99.4 79 16 107/64 (78) 96 Nasal Cannula 2.00 12/02/18 20:00 86 12/02/18 20:00 Nasal Cannula 2.00 12/02/18 19:20 98.4 82 20 113/59 (77) 93 Nasal Cannula 2.00 12/02/18 19:01 88 Nasal Cannula 1.00 I & O 12/03/18 07:00 Intake Total 1780 ml Output Total 1650 ml Balance 130 ml Capillary Refill : Less Than 3 SecondsLess Than 3 Seconds General Appearance: No Apparent Distress, Chronically ill, Thin Respiratory: Lungs Clear, No Accessory Muscle Use, No Respiratory Distress Cardiovascular: Regular Rate, Rhythm, No Murmur, Normal Peripheral Pulses Gastrointestinal: normal bowel sounds, non tender, soft, no organomegaly, no pulsatile mass Neurologic/Psychiatric: Alert, Disoriented Skin: Ecchymosis (on forehead) Results Lab Laboratory Tests 12/03/18 05:39: White Blood Count 9.0, Red Blood Count 3.06L, Hemoglobin 7.8L, Hematocrit 25L, Mean Corpuscular Volume 82, Mean Corpuscular Hemoglobin 25, Mean Corpuscular Hemoglobin Concent 31L, Red Cell Distribution Width 18.4H, Platelet Count 293, Mean Platelet Volume 11.1H, Sodium Level 135, Potassium Level 3.4L, Chloride Level 108H, Carbon Dioxide Level 20L, Anion Gap 7, Blood Urea Nitrogen 5L, Creatinine 0.78, Estimat Glomerular Filtration Rate > 60, BUN/Creatinine Ratio 6 , Glucose Level 95, Calcium Level 7.6L, Magnesium Level 1.7L Microbiology 11/28/18 Blood Culture - Final, Complete No growth 11/28/18 Influenza Types A,B Antigen (MERARY) - Final, Complete 11/28/18 Urine Culture - Final, Complete YEAST Assessment/Plan Assessment/Plan Assessment/Plan Near Obstructing lesion in Ascending colon Near Obstructing lesion in Descending colon Multiple Colon polyps Proctitis Gastric Ulcers Diverticula Anemia Hemoccult + Dementia Atrial fibrillation Sacral Decub Pt had EGD and colonoscopy; unfortunately she had 2 near obstructing lesions and multiple large polyps throughout the colon. I believe her best option is Subtotal Colectomy with end Ileostomy; the ileostomy does not have to be permanent. I don't think waiting for pathology matters because the lesions are very close to obstructing the colon and unfortunately I think they probably are cancer. I did give the family option of waiting for pathology and even doing no surgery. I discussed with the sons and daughter the risks and complications ; not limited to pain, bleeding, infection, scar, damage to bowel and need for further procedure. Pt is also at risk of NV and possible ; however, dying from an intestinal obstruction is horrible. In addition, she may continue to bleed and this could cause problems including NV. All questions answered to their satisfaction. They have elected to do surgery tomorrow. Clinical Quality Measures DVT/VTE Risk/Contraindication: Risk Factor Score Per Nursin RFS Level Per Nursing on Admit: 3=High RICHIE SCHMITT DO Dec 03, 2018 17:38
--- NOTE | 2018-12-03 18:26 | OPERATIVE REPORT ---
DATE OF SERVICE: PREOPERATIVE DIAGNOSES: Anemia and hemoccult positive with melanotic stools. POSTOPERATIVE DIAGNOSES: 1. Gastritis, possible gastric ulcer. 2. Duodenal polyp. PROCEDURE: 1. EGD with biopsy. 2. Colonoscopy with snare polypectomy. 3. Colonoscopy with hot biopsy. SURGEON: Virgilio Garsia DO. RESTORATION SILVERSMITH: None. FINDINGS: The patient had multiple colon polyps. She also had a quite large colon mass in the sigmoid colon and then a near obstructing mass in the ascending colon with other large areas of polyps. Pictures were taken of all of these. She also had some large diverticula as well. SPECIMEN: 1. Biopsy of a duodenal polyp. 2. Body of the stomach, biopsy of an ulcer. 3. Fundic ulcer biopsy. 4. Sigmoid colon polyp. 5. Piece of a sigmoid mass. 6. Transverse colon polyps. 7. Transverse colon biopsy. PROCEDURE NOTE: After informed consent was obtained, the patient was brought to the endoscopy suite, placed in the bed in left lateral decubitus position. She was administered IV sedation by the PATIENT FINANCIAL SERVICES SPECIALIST who then monitored her vitals the entire time, heart rate, blood pressure and pulse ox and the scope was inserted down the mouth through the esophagus into the stomach and then noted some gastritis, but minimal portion of the duodenum saw a polyp, took a picture of this and then did a biopsy, backed up in the stomach and retroflexed and saw an ulcer in the fundus, took a biopsy of this and then in the body of stomach, saw another ulcer, took a picture and then took a biopsy of this. Also took a picture of the GE junction, looked good. I removed the scope, changed gloves, changed scopes, went down below. In the rectum, she had what looked like proctitis pushing pass this scope and colon looked okay, but then she had a large polyp. Did a snare polypectomy of this, but then in the sigmoid colon just passed this; however, she had a very large mass, did a biopsy of this and then took a couple of large pieces with a snare. Able to finally push pass this and then on the way up in the transverse colon, saw large cluster of polyps, able to do snare polypectomy of this and then saw another large mass just pass this, did a biopsy of this and then passed that in the ascending colon saw near obstructing lesion, took a picture of this and able to get a biopsy at this point then removed the scope, slowly withdrawing it to look at the pacheco. The ascending colon, transverse colon, splenic flexure, descending colon, saw some large diverticula in the descending and sigmoid colon and then again the proctitis and inflammation in the rectum. I removed the scope. The patient tolerated the procedure. She was recovered in endoscopy suite. Job ID: [id number] DocumentID: [id number] Dictated Date: 12/03/2018 16:30:55 Public Address System Mechanic Date: 12/03/2018 18:25:57 Dictated By: VIRGILIO GARSIA DO
[2018-12-03] MEDS ORDERED: FLU QUADRIvalent (5+ YOA) 2018-2019 (AFLURIA) 0.5 ML IM ONE (19:00)
[2018-12-03] MEDS: cefTRIAXone 1,000 MG/SWFI 10 ML IV PUSH IV SCH ×2 (21:12)
[2018-12-04] VITALS (7 sets, daily range): BP systolic 120–158; BP diastolic 58–83
[2018-12-04 04:37] LABS: HEMOGLOBIN 8.3 G/DL (11.5-16.0); MEAN PLATELET VOLUME 11.1 FL (7.4-10.4); RED CELL DISTRIBUTION WIDTH 18.1 % (10.0-14.5); WHITE BLOOD COUNT 8.8 10^3/uL (4.3-11.0)
[2018-12-04 04:53] LABS: BUN/CREATININE RATIO 6; CALCIUM 7.5 MG/DL (8.5-10.1); CARBON DIOXIDE 20 MMOL/L (21-32); CHLORIDE 109 MMOL/L (98-107); CREATININE SERUM 0.72 MG/DL (0.60-1.30); GFR ESTIMATED > 60; GLUCOSE 80 MG/DL (70-105); MAGNESIUM 1.8 MG/DL (1.8-2.4); POTASSIUM 3.7 MMOL/L (3.6-5.0); SODIUM 139 MMOL/L (135-145)
[2018-12-04] MEDS: CATHETER FLUSH 10 ML SYR IV SCH ×3 (06:22→20:34)
[2018-12-04] MEDS: KCL 10 MEQ TAB (MICRO K) PO SCH ×2 (06:22→18:09)
[2018-12-04] MEDS: PANTOPRAZOLE 40 MG (PROTONIX) TAB PO SCH (06:23)
[2018-12-04] MEDS: RT-ALBUTEROL/IPRATROPIUM 3 ML (DUONEB) VIAL INH SCH ×4 (07:23→19:30)
[2018-12-04] MEDS: fluCOnazole (DIFLUCAN) 100 MG TAB PO SCH (07:45)
[2018-12-04] MEDS: ASPIRIN E.C. 81 MG (ECOTRIN) TAB PO SCH (07:45)
[2018-12-04] MEDS: meTOprolol TARTRATE 25 MG (LOPRESSOR) TABLET PO SCH ×2 (08:09→20:32)
[2018-12-04] MEDS: DILTIAZEM 120 MG (CARDIZEM CD) CAP PO SCH (08:09)
[2018-12-04] MEDS: ZINC OXIDE 16% OINT (BUTT PASTE) 113 GM TUBE TOP SCH ×3 (08:10→20:33)
[2018-12-04] MEDS ORDERED: ceFAZolin INJECTION 1,000 MG in WATER (STERILE) FOR INJECTION 10 ML IV NR (12:30)
[2018-12-04] MEDS: LACTATED RINGERS 1,000 ML IV PRN ×4 (13:18→16:28)
--- NOTE | 2018-12-04 13:49 | Progress Note-Cardiology ---
Cardiology SOAP Progress Note Subjective: Notes gen malaise and weakness and tiredness Denies cp or palp or syncope Objective: I&O/Vital Signs 12/04/18 12/04/18 12/04/18 12/04/18 04:44 07:00 07:23 07:29 Temp 97.6 Pulse 71 66 68 Resp 20 B/P (MAP) 137/65 (89) Pulse Ox 97 91 91 O2 Delivery Nasal Cannula Nasal Cannula O2 Flow Rate 3.00 2.00 FiO2 28 12/04/18 12/04/18 12/04/18 12/04/18 08:00 08:00 11:34 12:00 Temp 99.0 99.2 Pulse 71 69 Resp 20 20 B/P (MAP) 129/59 (82) 120/63 (82) Pulse Ox 96 95 96 O2 Delivery Nasal Cannula Nasal Cannula Nasal Cannula Nasal Cannula O2 Flow Rate 3.00 2.00 2.00 3.00 12/04/18 12:54 Pulse 68 12/04/18 00:00 Intake Total 950 ml Output Total 800 ml Balance 150 ml Weight (Pounds): 116 Weight (Ounces): 9.0 Weight (Calculated Kilograms): 52.111993 Constitutional: other (Oriented to self and place) Respiratory: No accessory muscle use, No respiratory distress; chest expansion is symmetric, chest is bilaterally symmetric, rhonchi (scattered), other ( coarse breath sounds) Cardiovascular: regular rate-rhythm; No JVD; S1 and S2 Gastrointestional: No tender; soft, round, audible bowel sounds Extremities: no lower extremity edema bilateral Neurologic/Psychiatric: grossly intact Skin: warm/dry, ulcerations (stage II decubitus ulcer to the coccyx. There is maceration and skin breakdown on the buttocks bilateral as well as in the periareolar.), other (redness noted to bilateral feet and does have scattered excoriations on her body.) Results/Procedures: Labs Laboratory Tests 12/04/18 03:55: White Blood Count 8.8, Red Blood Count 3.28L, Hemoglobin 8.3L, Hematocrit 27L, Mean Corpuscular Volume 82, Mean Corpuscular Hemoglobin 25, Mean Corpuscular Hemoglobin Concent 31L, Red Cell Distribution Width 18.1H, Platelet Count 299, Mean Platelet Volume 11.1H, Sodium Level 139, Potassium Level 3.7, Chloride Level 109H, Carbon Dioxide Level 20L, Anion Gap 10, Blood Urea Nitrogen 4L, Creatinine 0.72, Estimat Glomerular Filtration Rate > 60, BUN/Creatinine Ratio 6 , Glucose Level 80, Calcium Level 7.5L, Magnesium Level 1.8 Microbiology 11/28/18 Blood Culture - Final, Complete No growth 11/28/18 Influenza Types A,B Antigen ([facility]) - Final, Complete 11/28/18 Urine Culture - Final, Complete YEAST A/P: Assessment: Elevated troponin at this time, probably related to sepsis and/or atrial fibrillation with RVR (Type 2 [place]) CAD, last cardiac catheterization in March 2015 showed mild to moderate disease in the left coronary system with severe disease in a very small caliber right coronary artery that was not amendable to intervention. Normal left ventricular size and function. Echocardiogram of 11-29-[address] Saenz showed LVEF 50-55%. Mod MR. Mild to mod TR. PASP 45 mmHg. Paroxysmal acute atrial fibrillation - currently rate-controlled Anemia due to GI bleed. Endoscopy has shown obstructive intestinal lesions for which surgery has been recommended by Dr Garsia. Peripheral arterial disease, had 70% stenosis in the distal right external iliac artery noted at the time of cardiac catheterization in March 2015. LE edema - improved Urinary tract infection, managed by primary care team Hypokalemia, hypomagnesemia - replace Significant hearing loss. Poor memory, she is alert and oriented HTN History of anxiety. Plan: * Complex management due to multiple comorbidities * Cardiac surgical risk high, but mortality/morbidity risk w/o surgery even higher (see Dr Garsia's note). Thus, may be reasonable to proceed with necessary surgery if family and pt agree * Monitor labs BRIANA SHAH MD FACP FAC CCDS Dec 04, 2018 13:49
[2018-12-04] MEDS ORDERED: ceFAZolin INJECTION 1,000 MG ONE (14:09)
[2018-12-04] MEDS ORDERED: metroNIDAZOLE 500MG/100ML IVPB 100 ML ONE (14:09)
[2018-12-04] MEDS ORDERED: GLYCOPYRROLATE 0.2 MG/ML (ROBINUL) 2 ML VIAL ONE (14:22)
[2018-12-04] MEDS ORDERED: fentaNYL INJECTION 250 MCG/5 ML AMP ONE (14:22)
[2018-12-04] MEDS ORDERED: proPOfol 200 MG/20 ML (DIPRIVAN) VIAL IV ONE (14:22)
[2018-12-04] MEDS ORDERED: NEOSTIGMINE 1 MG/ML 5 ML SYRINGE ONE (14:22)
[2018-12-04] MEDS ORDERED: LIDOCAINE PF 2% 5 ML (XYLOCAINE) VIAL ONE (14:22)
[2018-12-04] MEDS ORDERED: DEXAMETHASONE 10 MG/ML (DECADRON) 1 ML VIAL ONE (14:22)
[2018-12-04] MEDS ORDERED: ONDANSETRON 4 MG/2 ML (SDV) Z0FRAN ONE (14:22)
[2018-12-04] MEDS ORDERED: ROCURONIUM 10 MG/ML 5 ML SYRINGE IV ONE (14:22)
[2018-12-04] MEDS ORDERED: SEVOFLURANE (ULTANE) 15 ML INHAL SOLN ONE (14:22)
[2018-12-04] MEDS: metroNIDAZOLE 500MG/100ML IVPB 100 ML IV NR (14:28)
[2018-12-04] MEDS ORDERED: HYDROmorphone 2 MG/ML VIAL (DILAUDID) ONE (15:16)
[2018-12-04] MEDS ORDERED: ROPIVACAINE 5MG/ML 30ML VIAL ONE (15:52)
--- NOTE | 2018-12-04 16:36 | Progress Note-Post Operative ---
Post-Operative Progess Note Surgeon (s)/Automatic Machines Supervisor (s) Surgeon RICHIE SCHMITT DO Automatic Machines Supervisor: Rosanne Pre-Operative Diagnosis Near obstructing Colon lesions, Anemia, Melena and Hemoccult + Post-Operative Diagnosis Same pending pathology Procedure & Operative Findings Date of Procedure 12/04/18 Procedure Performed/Findings Subtotal Colectomy with musa Ileostomy Anesthesia Type GET Estimated Blood Loss Estimated blood loss (mL): less than 100ml Specimens/Packing Specimens Removed Large colon with portion of TI, all the way down to low rectum RICHIE SCHMITT DO Dec 04, 2018 16:36
[2018-12-04] MEDS ORDERED: morphine INJ 10 MG/ML 1ML (SYR OR VIAL) IVP PRN (17:00)
[2018-12-04] MEDS ORDERED: ONDANSETRON 4 MG/2 ML (SDV) Z0FRAN IVP PRN ×2 (17:00→17:15)
[2018-12-04] MEDS ORDERED: fentaNYL INJECTION 100 MCG/2 ML AMP IVP ONE (17:15)
[2018-12-04] MEDS ORDERED: HYDROmorphone 2 MG/ML VIAL (DILAUDID) IV ONE (17:15)
--- NOTE | 2018-12-04 17:30 | NUR ---
Dr. Garsia wishes to start Lovenox 24 hours post op. This evenings dose non-administered in the [facility], and will be started tomorrow evening at 1700.
[2018-12-04] MEDS: LACTATED RINGERS 1,000 ML IV SCH ×2 (18:09→23:32)
[2018-12-04] MEDS: ENOXAPARIN 40 MG/0.4 ML (LOVENOX) SYR SC SCH (18:28)
[2018-12-04] MEDS: cefTRIAXone 1,000 MG/SWFI 10 ML IV PUSH IV SCH ×2 (20:32)
[2018-12-05] VITALS: BP 136/63
[2018-12-05 04:00] VITALS: BP 146/78
--- NOTE | 2018-12-05 04:34 | NUR ---
PT MIDLINE INCISION LEAKING MODERATE AMOUNT OF SEROSANGUINEOUS FLUID, UPON FURTHER INSPECTION THIS RN NOTED 1 STAPLE HAS CAME LOOSE FROM 1 SITE OF THE WOUND-THIS AREA IS WHERE THE FLUID IS COMING OUT OF. THIS RN APPLIED GAUZE 4X4 & ABD PAD TO COVER THIS AREA. 0404-THIS RN CALLED DR. SCHMITT TO MAKE HIM AWARE OF THE SITUATION-NO NEW ORDERS AT THIS TIME.
--- NOTE | 2018-12-05 06:13 | OPERATIVE REPORT ---
DATE OF SERVICE: PREOPERATIVE DIAGNOSES: 1. Near obstructing colon lesion x2. 2. Anemia. 3. Melena and Hemoccult positive. POSTOPERATIVE DIAGNOSES: 1. Near obstructing colon lesion x2. 2. Anemia. 3. Melena and Hemoccult positive. 4. Pending pathology. PROCEDURE: Subtotal colectomy with Sara ileostomy. SURGEON: Richie Garsia DO SUPERINTENDENT PIPELINES: Lencho Lay DO ANESTHESIA: General endotracheal tube. SPECIMEN: Large colon with portion of the terminal ileum all the way down to low rectum. BLOOD LOSS: Less than 100 mL. FLUIDS: Per anesthesia. POSTOPERATIVE CONDITION: Stable. INDICATION FOR PROCEDURE: The patient is a 78-year-old female, who had come in with some mental status changes. Actually, family states she was doing better after she was in the hospital, but she was found to be anemic, had a non-STEMI NC and colonoscopy performed, showed two near obstructing lesions and needed to have a colon resection because of this. FINDINGS: The patient had a near obstructing lesion on the right as well as on the left, felt this is still the very large polyp. Did not feel any obvious masses in the liver. PROCEDURE NOTE: After informed consent was obtained, the patient was brought to the operating room, placed on the table in supine position. She was sterilely prepped and draped in normal fashion. A midline incision was made with #10 blade, carried down through the skin and subcutaneous tissues then deepened down to subcutaneous tissue with Bovie electrocautery down to the fascia. Fascia was incised with electrocautery, then bluntly entered the abdomen, placed a finger underneath and then opened the fascia superiorly and inferiorly protecting the bowel with my finger. At this point then, delivered some of the large intestine. The small intestine with terminal ileum was stuck down in the pelvis, able to carefully free this up, came across the peritoneal reflection with Bovie electrocautery, freeing this up and then electing to go under the terminal ileum through the mesentery blunt dissection and placed a MIKE 55 across the terminal ileum, clamped and transected thereby cutting this off and then going along the white line of Toldt and the pericolic gutter on the right side with a Bovie electrocautery gently scoring along here and then pulling the colon in and then coming along the mesentery with the LigaSure from the portion of the terminal ileum going under this in a stepwise fashion coming all the way across the mesentery coming up under the right colon. I could feel large mass in the right colon. Palpated the liver, did not feel any masses and continued to come across the mesentery in a stepwise fashion, also coming across and freeing up the stomach going through the lesser sac. The stomach was freed up off of the colon and the omentum and then continued to take the colon along the mesentery then up into the splenic flexure, taking the splenic flexure down with LigaSure as well as Bovie electrocautery as well as some blunt dissection, again kind of gently pushing everything to the midline, then coming down the left pericolic gutter scoring the peritoneal reflection along the white line of Toldt and then coming to this, there was also blunt dissection and then again across with the mesentery with a LigaSure, clamping, coagulating and transecting in a stepwise fashion going all the way down now come across the mesentery under the sigmoid colon and then down to the rectum. I took the peritoneal reflection with LigaSure. Once this was freed up, then elected to place a contour stapler across the distal portion of colon clamped and fired, held for 30 seconds and then fired, held for 20 seconds and then cut and moved the entire large colon down to the low rectal area as well as a small portion of the terminal ileum and this appendix. This was passed off table and sent to pathology. Copiously irrigated with normal saline, suctioned this out and then freed up the terminal ileum a little bit more. I then grasped pieces of skin in between the umbilicus and the anterior superior iliac spine to create an ileostomy. Cut the skin off with the Bovie electrocautery and then cut out some fat down to the fascia. Fascia incised with Bovie electrocautery. A cruciate incision made, then brought 2 fingers through the ileostomy hole and then placed a Raul through the opening into the abdomen, grasped the stapled edge of the terminal ileum, then brought this through the abdominal wall. It came in easily and very nicely and at this point, then elected to close the midline incision closed it with two #1 double stranded PDS sutures, one from the inferior portion, one from the superior portion running together and meet in the middle and tying. Skin was then stapled close and then created our end ileostomy, used a Sara type ileostomy. Cut it opened the distal portion cutting the staple line off and then at 3, 6, and 9 o'clock position using 4-0 pop-off Vicryl, gained a piece of skin group home down the terminal ileum and then at the opening and then again at 3, 6, 9, and 12 o'clock position doing this to create a Sara ileostomy in between, did two simple 4-0 Vicryl stitches in between the 6 and 9 o'clock used three to create a Sara ileostomy. Once this was done, the area was clean and an ileostomy device was placed. The patient tolerated the procedure, had a TAP block done by anesthesia in the OR room and then transferred to the recovery room in stable condition. Sponge, instrument and needle count correct at the end of the case. Dr. Lay assisted in this case helping to make incisions helped with cutting out the colon identify anatomy. Job ID: [id number] DocumentID: [id number] Dictated Date: 12/04/2018 17:13:09 Cable Rigger Date: 12/05/2018 04:42:25 Dictated By: RICHIE GARSIA DO MTDSruthi
[2018-12-05] MEDS: KCL 10 MEQ TAB (MICRO K) PO SCH ×2 (06:18→17:10)
[2018-12-05] MEDS: CATHETER FLUSH 10 ML SYR IV SCH ×3 (06:18→22:00)
[2018-12-05] MEDS: RT-ALBUTEROL/IPRATROPIUM 3 ML (DUONEB) VIAL INH SCH ×4 (07:09→19:02)
[2018-12-05 08:00] VITALS: BP 144/78
[2018-12-05] MEDS: PANTOPRAZOLE 40 MG (PROTONIX) VIAL IVP SCH (08:20)
[2018-12-05] MEDS: LACTATED RINGERS 1,000 ML IV SCH ×2 (08:20→16:32)
[2018-12-05] MEDS: ZINC OXIDE 16% OINT (BUTT PASTE) 113 GM TUBE TOP SCH ×3 (08:20→20:36)
--- NOTE | 2018-12-05 08:44 | Progress Note-Cardiology ---
Cardiology SOAP Progress Note Objective: I&O/Vital Signs 12/06/18 12/06/18 12/06/18 12/06/18 00:00 01:00 04:00 07:03 Temp 97.9 98.0 Pulse 77 80 77 67 Resp 16 16 B/P (MAP) 132/62 (85) 137/65 (89) Pulse Ox 96 95 O2 Delivery Nasal Cannula Nasal Cannula O2 Flow Rate 2.00 2.00 12/06/18 07:42 Pulse Ox 94 O2 Delivery Nasal Cannula O2 Flow Rate 2.00 12/06/18 00:00 Intake Total 655 ml Output Total 505 ml Balance 150 ml Weight (Pounds): 116 Weight (Ounces): 9.0 Weight (Calculated Kilograms): 52.305813 Constitutional: other (Oriented to self and place) Respiratory: No accessory muscle use, No respiratory distress; chest expansion is symmetric, chest is bilaterally symmetric, rhonchi (scattered), other ( coarse breath sounds) Cardiovascular: regular rate-rhythm; No JVD; S1 and S2 Gastrointestional: No tender; soft, round, audible bowel sounds Extremities: no lower extremity edema bilateral Neurologic/Psychiatric: grossly intact Skin: warm/dry, ulcerations (stage II decubitus ulcer to the coccyx. There is maceration and skin breakdown on the buttocks bilateral as well as in the periareolar.), other (redness noted to bilateral feet and does have scattered excoriations on her body.) Results/Procedures: Labs Laboratory Tests 12/06/18 04:25: White Blood Count 14.3H, Red Blood Count 3.08L, Hemoglobin 7.9L, Hematocrit 25L , Mean Corpuscular Volume 83, Mean Corpuscular Hemoglobin 26, Mean Corpuscular Hemoglobin Concent 31L, Red Cell Distribution Width 18.3H, Platelet Count 335, Mean Platelet Volume 11.3H, Sodium Level 137, Potassium Level 4.5, Chloride Level 107, Carbon Dioxide Level 19L, Anion Gap 11, Blood Urea Nitrogen 10, Creatinine 0.81, Estimat Glomerular Filtration Rate > 60, BUN/Creatinine Ratio 12, Glucose Level 110H, Calcium Level 7.7L, Magnesium Level 1.5L Microbiology 11/28/18 Blood Culture - Final, Complete No growth 12/03/18 MRSA Screen - Final, Complete MRSA not isolated 11/28/18 Urine Culture - Final, Complete YEAST A/P: Assessment: S/P Subtotal colectomy with Sara ileostomy on 12-04-[address] Garsia - pathology pending Elevated troponin at this time, probably related to sepsis and/or atrial fibrillation with RVR (Type 2 [place]) CAD, last cardiac catheterization in March 2015 showed mild to moderate disease in the left coronary system with severe disease in a very small caliber right coronary artery that was not amendable to intervention. Normal left ventricular size and function. Echocardiogram of 11-29-[address] Saenz showed LVEF 50-55%. Mod MR. Mild to mod TR. PASP 45 mmHg. Paroxysmal acute atrial fibrillation - currently rate-controlled Anemia due to GI bleed. Endoscopy has shown obstructive intestinal lesions for which surgery has been recommended by Dr Garsia. Peripheral arterial disease, had 70% stenosis in the distal right external iliac artery noted at the time of cardiac catheterization in March 2015. LE edema - improved Urinary tract infection, managed by primary care team Hypokalemia, hypomagnesemia - replace Significant hearing loss. Poor memory, she is alert and oriented HTN History of anxiety. Plan: * Complex management due to multiple comorbidities * S/P subtotal colectomy with ileostomy placement on 12-04-18 - pathology pending * Monitor labs JERMAN MARVIN Dec 05, 2018 08:44
--- NOTE | 2018-12-05 08:51 | Progress Note-Cardiology ---
Cardiology SOAP Progress Note Subjective: Somnolent. Does not report cp or palp or syncope or shortness of breath Objective: I&O/Vital Signs 12/04/18 12/05/18 12/05/18 12/05/18 21:35 00:00 01:02 04:00 Temp 97.0 98.0 Pulse 65 64 64 68 Resp 20 20 B/P (MAP) 136/63 (87) 146/78 (100) Pulse Ox 95 95 O2 Delivery Nasal Cannula Nasal Cannula O2 Flow Rate 2.00 2.00 12/05/18 07:09 Pulse Ox 95 O2 Delivery Nasal Cannula O2 Flow Rate 2.00 12/05/18 00:00 Intake Total 2220 ml Output Total 840 ml Balance 1380 ml Weight (Pounds): 116 Weight (Ounces): 9.0 Weight (Calculated Kilograms): 52.259171 Constitutional: other (Oriented to self and place) Respiratory: No accessory muscle use, No respiratory distress; chest expansion is symmetric, chest is bilaterally symmetric, rhonchi (scattered), other ( coarse breath sounds) Cardiovascular: regular rate-rhythm; No JVD; S1 and S2 Gastrointestional: No tender; soft, round, audible bowel sounds Extremities: no lower extremity edema bilateral Neurologic/Psychiatric: grossly intact Skin: warm/dry, ulcerations (stage II decubitus ulcer to the coccyx. There is maceration and skin breakdown on the buttocks bilateral as well as in the periareolar.), other (redness noted to bilateral feet and does have scattered excoriations on her body.) Results/Procedures: Labs Microbiology 11/28/18 Blood Culture - Final, Complete No growth 12/03/18 MRSA Screen - Final, Complete MRSA not isolated 11/28/18 Urine Culture - Final, Complete YEAST A/P: Assessment: S/P Subtotal colectomy with Sara ileostomy on 12-04-[address] Garsia - pathology pending Elevated troponin at admission, probably related to sepsis and/or atrial fibrillation with RVR (Type 2 [place]) CAD, last cardiac catheterization in March 2015 showed mild to moderate disease in the left coronary system with severe disease in a very small caliber right coronary artery that was not amendable to intervention. Normal left ventricular size and function. Echocardiogram of 11-29-[address] Letty showed LVEF 50-55%. Mod MR. Mild to mod TR. PASP 45 mmHg. Paroxysmal acute atrial fibrillation - currently rate-controlled Anemia due to GI bleed. Endoscopy showed obstructive intestinal lesions that led to surgery noted above Peripheral arterial disease, had 70% stenosis in the distal right external iliac artery noted at the time of cardiac catheterization in March 2015. LE edema - improved Urinary tract infection, managed by primary care team Significant hearing loss. Poor memory HTN History of anxiety Plan: * Complex management due to multiple comorbidities * Monitor labs BRIANA SHAH MD FACP FACC CCDS Dec 05, 2018 08:51
--- NOTE | 2018-12-05 09:23 | Progress Note-Hospitalist ---
Subjective HPI/CC On Admission Date Seen by Provider: Dec 05, 2018 Time Seen by Provider: 09:14 CC: UTI with altered mental status HPI: This is a 78-year-old white female clinic patient of Dr. Jaramillo, whom I visited with regarding this patient, who has a past medical history of dementia who presented to the ER via EMS with elevated troponin, hypokalemia, atrial fibrillation, and sacral decubitus ulcer who was unable to get up out of bed at home and patient appears to be in need of a long term placement. Previously the family refused long term placement per primary care provider but now apparently is willing to look into that option. Patient is currently sleeping she does open her eyes but she appears to be confused. Subjective/Events-last exam Pt is sleeping, Awakens but does not participate in ROS. RN at bedside and states she has been doing well post op. NG tube to be pulled today. Objective Exam Vital Signs Vital Signs Date Time Temp Pulse Resp B/P (MAP) Pulse Ox O2 Delivery O2 Flow Rate FiO2 12/05/18 10:13 92 Nasal Cannula 2.00 12/05/18 08:00 97.7 72 18 144/78 (100) 12/04/18 07:29 28 Capillary Refill : Less Than 3 SecondsLess Than 3 Seconds General Appearance: No Apparent Distress, Chronically ill, Thin HEENT: Other (NGT in place) Respiratory: Lungs Clear, No Accessory Muscle Use, No Respiratory Distress Cardiovascular: Regular Rate, Rhythm, No Murmur, Normal Peripheral Pulses Gastrointestinal: Normal Bowel Sounds, Other (surgical dressing in place) Neurologic/Psychiatric: Alert, Disoriented Skin: Ecchymosis (on forehead) Results/Procedures Lab Patient resulted labs reviewed. Assessment/Plan Assessment and Plan Assess & Plan/Chief Complaint A/P 1. NSTEMI- Cardiology consulted, appreciate recs, small vessel coronary disease not amenable to catheter-based intervention for which conservative medical management has been recommended 2. UTI- Not sepsis, will DC Rocephin as has completed 7 days, continue diflucan for yeast on culture, blood cx NGTD 3. Colon mass- s/p hemicolectomy POD #[address] Garsia, NGT to be removed today, advance diet per Dr Garsia 4. Atrial fibrillation- Cardiology managing as well. Continue Dilt and Metoprolol 5. Anemia- normocytic, likely due to chronic GI losses 6. Combination of dementia and severe presbycusis- reorient as needed, will need NH placement upon discharge, transition social worker consulted, VCV to assess pt today 7. Hypomagnesemia- resolved today 8. Hypokalemia- resolved today 9. Stage II decubitus ulcer- Wound care consulted, appreciate recs Clinical Quality Measures DVT/VTE Risk/Contraindication: Risk Factor Score Per Nursin RFS Level Per Nursing on Admit: 3=High VALERI EDWARDS MD Dec 05, 2018 09:23
--- NOTE | 2018-12-05 10:00 | NUR ---
NG tube removed at this time. Pt tired and refuses to drink. Will continue to try to get pt to drink.
[2018-12-05] MEDS: fluCOnazole (DIFLUCAN) 100 MG TAB PO SCH (10:25)
[2018-12-05] MEDS: DILTIAZEM 120 MG (CARDIZEM CD) CAP PO SCH (10:25)
[2018-12-05] MEDS: meTOprolol TARTRATE 25 MG (LOPRESSOR) TABLET PO SCH ×2 (10:26→20:35)
[2018-12-05] MEDS: ASPIRIN E.C. 81 MG (ECOTRIN) TAB PO SCH (10:26)
--- NOTE | 2018-12-05 10:43 | Physical Therapy Evaluation ---
PT Evaluation-General Medical Diagnosis Admission Date Nov 28, 2018 at 16:59 Medical Diagnosis: UTI Onset Date: Nov 28, 2018 Therapy Diagnosis Therapy Diagnosis: weakness; abn gait Height/Weight Height (Feet): 5 Height (Inches): 2.00 Weight (Pounds): 116 Weight (Ounces): 9.0 Precautions Precautions/Isolations: Fall Prevention, Standard Precautions Weight Bear Status Right Lower Extremity: Right Weight Bearing/Tolerated Left Lower Extremity: Left Weight Bearing/Tolerated Referral Physician: Marj Reason for Referral: Evaluation/Treatment Medical History Pertinent Medical History: Atrial Fib, DM, Dementia, HTN, Smoking Additional Medical History High cholesterol, anxiety Current History Pt presented to the hospital ER due to decreased ability to get out of bed and was found to have an UTI and stage II ulcer; while here, she was also found to have a bowel obstruction and underwent a bowel resection with colostomy and ileostomy. Reviewed History: Yes Social History Unable to obtain information from patient. Poor historian Prior/Core FIM Prior Level of Function Therapy Code Descriptions/Definitions Functional [place] Measure: 0=Not Assessed/NA 4=Minimal Assistance 1=Total Assistance 5=Supervision or Setup 2=Maximal Assistance 6=Modified [place] 3=Moderate Assistance 7=Complete [place] Therapy Quality Codes: 6 Independent with activity with or without an assistive device 5 Patient requires set up or clean up by helper. Patient completes activity by themselves 4 Supervision or touching assist (CGA). [place] provide cues , steadying assist 3 The helper provides less than half the effort to complete the activity 2 The helper provides more than half the effort to complete the activity 1 Dependent. The helper does all the effort to complete an activity 7 Patient refused to complete or attempt activity 9 The patient did not perform the activity before the current illness or injury 88 Not attempted due to Medical conditions or safety concerns Functional Abilities and Goals: Independent: Patient completed the activities by him/herself, with or without an assistive device, with no assistance from a helper. Needed Some Help: Patient needed partial assistance from another person to complete activities. Dependent: A helper completed the activities for the patient. Unknown: Not Applicable: Unsure of her mobility prior PT Evaluation-Current Subjective Answers 50% of questions. Cooperative with PT Objective Attachments: NG Tube, Long Catheter, IV ROM/Strength ROM Lower Extremities WFL Strength Lower Extremities WFL Integumentary/Posture Posture ronded shoudlers in standing. Neuromuscular (Tone, Coordination, Reflexes) intact Sensory Vision: Functional Hearing: Hearing Aid/Aides Transfers Therapy Code Descriptions/Definitions Functional [place] Measure: 0=Not Assessed/NA 4=Minimal Assistance 1=Total Assistance 5=Supervision or Setup 2=Maximal Assistance 6=Modified [place] 3=Moderate Assistance 7=Complete [place] Pt required max assist to transition sit to from supine with verbal and tactile cues. Pt was participatory with transfer and may have been limited by impaired hearing. She did attempt to assist with the transfer and once sitting EOB, she required min to CGA for balance. Sat 5 minutes and had her move her legs and feet to promote circulation. Pt was able to stand up with min assist with verbal and tactile cues and take 4-5 steps to her right to move up in the bed. Pt in bed post treatment in slight right sidelying, with needs met. Bed alarm activated. Balance Sitting Static: Fair Sitting Dynamic: Fair Standing Static: Fair Standing Dynamic: Fair Assessment/Needs Pt has impaired hearing which limited her ability to follow cues this date. However, she was cooperative and attempted to assist with functional transfers and mobility. She is able to mobilize and stand to take steps. She will benefit from skilled intervention to improve mobility and activity tolerance. Rehab Potential: Good PT [facility] Goals [facility] Goals PT [facility] Goals Time Frame: Dec 12, 2018 Transfers (B,C,W/C) (FIM): 5 Gait (FIM): 4 Gait distance (FIM): 3=150 ft Gait Assistive Device: FWW PT Plan Problem List Problem List: Activity Tolerance, Functional Strength, Safety, Balance, Gait, Transfer, Bed Mobility Treatment/Plan Treatment Plan: Continue Plan of Care Treatment Plan: Bed Mobility, Education, Functional Activity Jaycee, Functional Strength, Gait, Safety, Therapeutic Exercise, Transfers Treatment Duration: Dec 12, 2018 Frequency: 6 times per week Estimated Hrs Per Day: .25 hour per day Patient and/or Family Agrees t: Yes Safety Risks/Education Patient Education: Transfer Techniques Teaching Recipient: Patient Teaching Methods: Demonstration Response to Teaching: Reinforcement Needed Time/GCodes Time In: 948 Time Out: 1005 Total Billed Treatment Time: 17 Total Billed Treatment visit EVM 17 MARINA LACKEY PT Dec 05, 2018 10:43
[2018-12-05 12:00] VITALS: BP 144/73
--- NOTE | 2018-12-05 14:17 | Anesthesia-General Post-Op ---
General Patient Condition Mental Status/LOC: Same as Preop Cardiovascular: Satisfactory Nausea/Vomiting: Absent Respiratory: Satisfactory Pain: Controlled Complications: Absent Post Op Complications Complications None Follow Up Care/Instructions Patient Instructions None needed. Anesthesia/Patient Condition Patient Condition Patient is doing well, no complaints, stable vital signs, no apparent adverse anesthesia problems. No complications reported per nursing. RHIANNON CHEW CRNA Dec 05, 2018 14:17
[2018-12-05 15:47] VITALS: BP 128/60
[2018-12-05] MEDS: ENOXAPARIN 40 MG/0.4 ML (LOVENOX) SYR SC SCH (17:10)
--- NOTE | 2018-12-05 17:12 | Progress Note ---
Subjective Time Seen by a Provider: 16:30 Subjective/Events-last exam Pt seen and examined, sitting up in bed appears to be in no distress. She denied abdominal pain and only stated she was glad that she was finally warm. Tolerating clears. Review of Systems General: No Chills, No Night Sweats Pulmonary: No Dyspnea, No Cough Cardiovascular: No: Chest Pain, Palpitations Gastrointestinal: No: Nausea, Vomiting Objective Exam Vital Signs Date Time Temp Pulse Resp B/P (MAP) Pulse Ox O2 Delivery O2 Flow Rate FiO2 12/05/18 15:47 97.8 80 18 128/60 (82) 98 Nasal Cannula 2.00 12/05/18 14:48 93 Nasal Cannula 2.00 12/05/18 13:10 71 12/05/18 12:00 98.2 73 18 144/73 (96) 99 Nasal Cannula 2.00 12/05/18 10:13 92 Nasal Cannula 2.00 12/05/18 08:00 Nasal Cannula 3.00 12/05/18 08:00 97.7 72 18 144/78 (100) 98 Nasal Cannula 2.00 12/05/18 07:09 95 Nasal Cannula 2.00 12/05/18 06:58 66 12/05/18 04:00 98.0 68 20 146/78 (100) 95 Nasal Cannula 2.00 12/05/18 01:02 64 12/05/18 00:00 97.0 64 20 136/63 (87) 95 Nasal Cannula 2.00 12/04/18 21:35 65 12/04/18 20:00 Nasal Cannula 3.00 12/04/18 19:43 98.3 70 18 158/72 (100) 98 Nasal Cannula 3.00 12/04/18 19:30 95 Nasal Cannula 4.00 12/04/18 17:54 98.4 74 18 123/83 (96) 95 Nasal Cannula 3.00 I & O 12/05/18 07:00 Intake Total 2220 ml Output Total 1225 ml Balance 995 ml Capillary Refill : Less Than 3 SecondsLess Than 3 Seconds General Appearance: No Apparent Distress, Chronically ill, Thin HEENT: Other (NGT in place) Respiratory: Lungs Clear, No Accessory Muscle Use, No Respiratory Distress Cardiovascular: Regular Rate, Rhythm, No Murmur, Normal Peripheral Pulses Gastrointestinal: tenderness (mild at midline incision), other (ileostomy is viable, no output yet. Midline incision clean and dry, staple from around umbilicus fell off; but looks ok no drainage at this time) Neurologic/Psychiatric: Alert, Disoriented Skin: Ecchymosis (on forehead) Results Lab Microbiology 11/28/18 Blood Culture - Final, Complete No growth 12/03/18 MRSA Screen - Final, Complete MRSA not isolated 11/28/18 Urine Culture - Final, Complete YEAST Assessment/Plan Assessment/Plan Assessment/Plan Near Obstructing lesion in Ascending colon Near Obstructing lesion in Descending colon Multiple Colon polyps Proctitis Gastric Ulcers Diverticula Anemia Hemoccult + Dementia Atrial fibrillation Sacral Decub S/P SubTotal colectomy; would increase to soft diet, d/c oscar, d/c morphine and have PT work with pt to ambulate QID. Pt should also do IS 10 x Q hour while awake. She looks really good today. Clinical Quality Measures DVT/VTE Risk/Contraindication: Risk Factor Score Per Nursin RFS Level Per Nursing on Admit: 3=High RICHIE SCHMITT DO Dec 05, 2018 17:12
[2018-12-05 19:19] VITALS: BP 122/59
[2018-12-06] VITALS: BP 132/62
[2018-12-06 04:00] VITALS: BP 137/65
[2018-12-06 05:05] LABS: HEMOGLOBIN 7.9 G/DL (11.5-16.0); MEAN PLATELET VOLUME 11.3 FL (7.4-10.4); RED CELL DISTRIBUTION WIDTH 18.3 % (10.0-14.5); WHITE BLOOD COUNT 14.3 10^3/uL (4.3-11.0)
[2018-12-06 05:24] LABS: BUN/CREATININE RATIO 12; CALCIUM 7.7 MG/DL (8.5-10.1); CARBON DIOXIDE 19 MMOL/L (21-32); CHLORIDE 107 MMOL/L (98-107); CREATININE SERUM 0.81 MG/DL (0.60-1.30); GFR ESTIMATED > 60; GLUCOSE 110 MG/DL (70-105); MAGNESIUM 1.5 MG/DL (1.8-2.4); POTASSIUM 4.5 MMOL/L (3.6-5.0); SODIUM 137 MMOL/L (135-145)
[2018-12-06] MEDS: LACTATED RINGERS 1,000 ML IV SCH (05:52)
[2018-12-06] MEDS: CATHETER FLUSH 10 ML SYR IV SCH ×2 (06:01→14:57)
[2018-12-06] MEDS: RT-ALBUTEROL/IPRATROPIUM 3 ML (DUONEB) VIAL INH SCH ×2 (07:41→11:42)
[2018-12-06 08:00] VITALS: BP 126/62
--- NOTE | 2018-12-06 08:41 | Discharge Inst-Skilled Nursing ---
Discharge Inst-Skilled NF Chief Complaint CC: UTI with altered mental status HPI: This is a 78-year-old white female clinic patient of Dr. Jaramillo, whom I visited with regarding this patient, who has a past medical history of dementia who presented to the ER via EMS with elevated troponin, hypokalemia, atrial fibrillation, and sacral decubitus ulcer who was unable to get up out of bed at home and patient appears to be in need of a long-term placement. Previously the family refused long-term placement per primary care provider but now apparently is willing to look into that option. Patient is currently sleeping she does open her eyes but she appears to be confused. Patient Instructions Patient Problems: New ostomy, CAD, Anemia Consult/Follow Up/Orders Skilled NF Admit to: [facility] Certification (SNF) I certify that SNF services are required to be given on an inpatient basis because of the above named patient's need for [facility] care on a continuing basis for the conditions(s) for which he/she was receiving inpatient hospital services prior to his/her transfer to the SNF. Group Home Facility Order: Nursing Services, Billing Department Supervisor-Evaluate & Treat, Physical Therapy-Evaluate & Treat, Wound Care-Eval/Treat Oxygen Delivery Method: Nasal Cannula Discharge Diet: Semi-Solid Diet New & Resume Previous Orders Valeri Mcmahan Dec 06, 2018 08:37 VALERI MCMAHAN MD Dec 06, 2018 08:41
[2018-12-06] MEDS ORDERED: ACHD5005 PO (08:43)
[2018-12-06] MEDS ORDERED: DILT120C94 PO (08:43)
[2018-12-06] MEDS ORDERED: POTA10TA6 PO (08:43)
[2018-12-06] MEDS ORDERED: ZINC28PA TOP (08:43)
[2018-12-06] MEDS ORDERED: METO-333 PO (08:43)
--- NOTE | 2018-12-06 08:48 | Progress Note-Cardiology ---
Cardiology SOAP Progress Note Subjective: Denies c/o. States she's hungry. Oriented to self only. Objective: I&O/Vital Signs 12/06/18 12/06/18 12/06/18 12/06/18 00:00 01:00 04:00 07:03 Temp 97.9 98.0 Pulse 77 80 77 67 Resp 16 16 B/P (MAP) 132/62 (85) 137/65 (89) Pulse Ox 96 95 O2 Delivery Nasal Cannula Nasal Cannula O2 Flow Rate 2.00 2.00 12/06/18 12/06/18 07:42 08:00 Temp 97.8 Pulse 77 Resp 22 B/P (MAP) 126/62 (83) Pulse Ox 94 93 O2 Delivery Nasal Cannula Nasal Cannula O2 Flow Rate 2.00 2.00 12/06/18 00:00 Intake Total 655 ml Output Total 505 ml Balance 150 ml Weight (Pounds): 139 Weight (Ounces): 8.0 Weight (Calculated Kilograms): 63.932582 Constitutional: other (Oriented to self and place) Respiratory: No accessory muscle use, No respiratory distress; chest expansion is symmetric, chest is bilaterally symmetric, other (diminished lower lobes bilat; poor inspiratory effort) Cardiovascular: regular rate-rhythm; No JVD; S1 and S2 Gastrointestional: No tender; soft, round, other (post-op abdomen) Extremities: no lower extremity edema bilateral Neurologic/Psychiatric: grossly intact Skin: warm/dry, ulcerations (stage II decubitus ulcer to the coccyx. There is maceration and skin breakdown on the buttocks bilateral as well as in the periareolar.), other (scattered excoriations on her body.) Results/Procedures: Labs Laboratory Tests 12/06/18 04:25: White Blood Count 14.3H, Red Blood Count 3.08L, Hemoglobin 7.9L, Hematocrit 25L , Mean Corpuscular Volume 83, Mean Corpuscular Hemoglobin 26, Mean Corpuscular Hemoglobin Concent 31L, Red Cell Distribution Width 18.3H, Platelet Count 335, Mean Platelet Volume 11.3H, Sodium Level 137, Potassium Level 4.5, Chloride Level 107, Carbon Dioxide Level 19L, Anion Gap 11, Blood Urea Nitrogen 10, Creatinine 0.81, Estimat Glomerular Filtration Rate > 60, BUN/Creatinine Ratio 12, Glucose Level 110H, Calcium Level 7.7L, Magnesium Level 1.5L Microbiology 11/28/18 Blood Culture - Final, Complete No growth 12/03/18 MRSA Screen - Final, Complete MRSA not isolated 11/28/18 Urine Culture - Final, Complete YEAST A/P: Assessment: S/P Subtotal colectomy with Sara ileostomy on 12-04-[address] Garsia - pathology pending Elevated troponin at admission, probably related to sepsis and/or atrial fibrillation with RVR (Type 2 DC) CAD, last cardiac catheterization in March 2015 showed mild to moderate disease in the left coronary system with severe disease in a very small caliber right coronary artery that was not amendable to intervention. Normal left ventricular size and function. Echocardiogram of 11-29-[address] Saenz showed LVEF 50-55%. Mod MR. Mild to mod TR. PASP 45 mmHg. Paroxysmal acute atrial fibrillation - currently rate-controlled Anemia due to GI bleed. Endoscopy showed obstructive intestinal lesions that led to surgery noted above Peripheral arterial disease, had 70% stenosis in the distal right external iliac artery noted at the time of cardiac catheterization in March 2015. LE edema - improved Urinary tract infection, managed by primary care team Significant hearing loss. Poor memory HTN History of anxiety Plan: * Complex management due to multiple comorbidities * Monitor labs * Replace electrolytes * PAF - currently not on OAC d/t previous issue of anemia with suspected GI source. She has now had subtotal colectomy with ileostomy. Consider starting low dose apixaban for stroke prophylaxis if ok with surgical services. Will continue with ASA for now. Physician Assessment Physician Assessment Confused. Does not report symptoms Lungs: good bilat air entry, diminished at the bases Cor: reg Ext: no c/c. Mild leg edema A&R * As documented in our note above that I updated (italics) and as noted below * Monitor labs * Dr Saenz covering our Svce until 12/09/18 JERMAN MARVIN Dec 06, 2018 08:48 BRIANA SHAH MD [facility] Dec 06, 2018 11:00
[2018-12-06] MEDS: MAGNESIUM 1 GM/100 ML IVPB 100 ML IV SCH ×2 (09:49→10:46)
--- NOTE | 2018-12-06 09:50 | NUR ---
ROSADO CATH ORDER FROM 12/05 NOTED. JOSELUIS REMOVED.
[2018-12-06] MEDS: PANTOPRAZOLE 40 MG (PROTONIX) VIAL IVP SCH (09:51)
[2018-12-06] MEDS: KCL 10 MEQ TAB (MICRO K) PO SCH (09:52)
[2018-12-06] MEDS: meTOprolol TARTRATE 25 MG (LOPRESSOR) TABLET PO SCH (09:52)
[2018-12-06] MEDS: ASPIRIN E.C. 81 MG (ECOTRIN) TAB PO SCH (09:52)
[2018-12-06] MEDS: DILTIAZEM 120 MG (CARDIZEM CD) CAP PO SCH (09:52)
[2018-12-06] MEDS: fluCOnazole (DIFLUCAN) 100 MG TAB PO SCH (09:52)
[2018-12-06] MEDS: ZINC OXIDE 16% OINT (BUTT PASTE) 113 GM TUBE TOP SCH ×2 (09:53→14:57)
--- NOTE | 2018-12-06 11:38 | Physical Therapy Daily Note ---
PT Daily Note-Current Subjective Patient is EOB. Family present and agree to PT. Mental Status Patient Orientation: Confused Attachments: Oxygen, IV Transfers Therapy Code Descriptions/Definitions Functional [place] Measure: 0=Not Assessed/NA 4=Minimal Assistance 1=Total Assistance 5=Supervision or Setup 2=Maximal Assistance 6=Modified [place] 3=Moderate Assistance 7=Complete [place] Therapy Quality Codes: 6 Independent with activity with or without an assistive device 5 Patient requires set up or clean up by helper. Patient completes activity by themselves 4 Supervision or touching assist (CGA). [place] provide cues , steadying assist 3 The helper provides less than half the effort to complete the activity 2 The helper provides more than half the effort to complete the activity 1 Dependent. The helper does all the effort to complete an activity 7 Patient refused to complete or attempt activity 9 The patient did not perform the activity before the current illness or injury 88 Not attempted due to Medical conditions or safety concerns Transfers (B, C, W/C) (FIM): 2 Scootin Supine to/from Sit: 3 Sit to/from Stand: 2 Bed to/from Chair: 2 Patient is retropulsive with sit to stand and with attempt to ambulate with FWW. Noted kyphosis and extended UE's with FWW use Weight Bearing Right Lower Extremity: Right Weight Bearing/Tolerated Left Lower Extremity: Left Weight Bearing/Tolerated Assessment Patient is unable to ambulate and declined to continue to attempt. Patient required mod to max assist for all mobility on this date. PT Snf Goals Hooker Machine Tender Goals PT Snf Goals Time Frame: Dec 12, 2018 Transfers (B,C,W/C) (FIM): 5 Gait (FIM): 4 Gait distance (FIM): 3=150 ft Gait Assistive Device: FWW PT Plan Treatment/Plan Treatment Plan: Continue Plan of Care Treatment Plan: Bed Mobility, Education, Functional Activity Jaycee, Functional Strength, Gait, Safety, Therapeutic Exercise, Transfers Treatment Duration: Dec 12, 2018 Frequency: 6 times per week Estimated Hrs Per Day: .25 hour per day Patient and/or Family Agrees t: Yes Time/GCodes Time In: 1105 Time Out: 1117 Total Billed Treatment Time: 12 Total Billed Treatment 1 visit FA 12 min NATHAN LIGHT PT Dec 06, 2018 11:37
[2018-12-06 12:00] VITALS: BP 133/61
--- NOTE | 2018-12-06 12:13 | Discharge Summary-Hospitalist ---
Diagnosis/Chief Complaint Date of Admission Nov 28, 2018 at 16:59 Date of Discharge Discharge Date: Dec 06, 2018 Admission Diagnosis Assessment: UTI Altered mental statuses on right forehead Elevated troponin Hypokalemia Atrial fibrillation Sacral decubitus ulcer Frail status Falls Plan: social work consult IV fluids and supportive care Cardiology consultation Poor prognosis Needs DNR Discharge Diagnosis (1) Stage II decubitus ulcer Status: Acute (2) Dementia Status: Chronic (3) Hypokalemia Status: Acute (4) Urinary tract infection Status: Acute (5) NSTEMI (non-ST elevated myocardial infarction) Status: Acute (6) Atrial fibrillation Status: Acute (7) Hypertension Status: Chronic Discharge Summary Discharge Physical Exam Allergies: Coded Allergies: propoxyphene (Verified Allergy, Unknown, 12/03/18) Vitals & I&Os Vital Signs Date Time Temp Pulse Resp B/P (MAP) Pulse Ox O2 Delivery O2 Flow Rate FiO2 12/06/18 11:43 97 Nasal Cannula 2.00 12/06/18 08:00 97.8 77 22 126/62 (83) 12/04/18 07:29 28 General Appearance: No Apparent Distress, Chronically ill, Thin Cardiovascular: No Murmur, Irregularly Irregular Gastrointestinal: Normal Bowel Sounds, Soft Hospital Course Pt is a 78yoCF who was admitted for UTI and NSTEMI and was found to be anemic. She underwent endoscopy and colonoscopy which revealed a nearly obstructive mass in her colon. She then underwent a colon resection with ostomy formation the next day and pathology from the mass was sent. She was not started on anticoagulation at this time due to recent surgery and anemia. She did well postoperatively and was discharged to custodial. I called and informed her PCP Dr Jaramillo regarding the details of this hospital stay. Labs (last 24 hrs) Laboratory Tests 12/06/18 04:25: White Blood Count 14.3H, Red Blood Count 3.08L, Hemoglobin 7.9L, Hematocrit 25L , Mean Corpuscular Volume 83, Mean Corpuscular Hemoglobin 26, Mean Corpuscular Hemoglobin Concent 31L, Red Cell Distribution Width 18.3H, Platelet Count 335, Mean Platelet Volume 11.3H, Sodium Level 137, Potassium Level 4.5, Chloride Level 107, Carbon Dioxide Level 19L, Anion Gap 11, Blood Urea Nitrogen 10, Creatinine 0.81, Estimat Glomerular Filtration Rate > 60, BUN/Creatinine Ratio 12, Glucose Level 110H, Calcium Level 7.7L, Magnesium Level 1.5L Microbiology 11/28/18 Blood Culture - Final, Complete No growth 12/03/18 MRSA Screen - Final, Complete MRSA not isolated 11/28/18 Urine Culture - Final, Complete YEAST Patient resulted labs reviewed. Pending Labs Laboratory Tests 12/06/18 04:25: White Blood Count 14.3, Red Blood Count 3.08, Hemoglobin 7.9, Hematocrit 25, Mean Corpuscular Volume 83, Mean Corpuscular Hemoglobin 26, Mean Corpuscular Hemoglobin Concent 31, Red Cell Distribution Width 18.3, Platelet Count 335, Mean Platelet Volume 11.3, Sodium Level 137, Potassium Level 4.5, Chloride Level 107, Carbon Dioxide Level 19, Anion Gap 11, Blood Urea Nitrogen 10, Creatinine 0.81, Estimat Glomerular Filtration Rate > 60, BUN/Creatinine Ratio 12, Glucose Level 110, Calcium Level 7.7, Magnesium Level 1.5 Discussion & Recommendations Discharge Planning: >30 minutes discharge planning Discharge Home Medications: Active Scripts Active Klor-Con 10 (Potassium Chloride) 10 Meq Tablet.er 10 Meq PO BID WITH MEALS Boudreauxs (Zinc Oxide) 28 Gm Oint 0 Gm TOP TID Hydrocodone/Acetaminophen 5/325mg Tablet (Acetaminophen/Hydrocodone Bitart) 1 Tab Tab 1 Tab PO Q4H PRN Diltiazem 24Hr Cd (Diltiazem HCl) 120 Mg Cap.er.24h 120 Mg PO DAILY Metoprolol Tartrate 25 Mg Tablet 25 Mg PO BID Reported Iron (Ferrous Sulfate) 325 Mg Tablet 325 Mg PO Q48H Aspirin EC (Aspirin) 81 Mg Tablet.dr 81 Mg PO DAILY Oxybutynin Chloride 5 Mg Tablet 5 Mg PO BID Instructions to patient/family Please see electronic discharge instructions given to patient. Clinical Quality Measures DVT/VTE Risk/Contraindication: Risk Factor Score Per Nursin RFS Level Per Nursing on Admit: 3=High Problem Qualifiers (1) Stage II decubitus ulcer: Pressure injury location: sacral region Qualified Codes: L89.152 - Pressure ulcer of sacral region, stage 2 (2) Dementia: Dementia type: Alzheimer's disease Alzheimer's disease onset: unspecified onset Dementia behavioral disturbance: without behavioral disturbance Qualified Codes: G30.9 - Alzheimer's disease, unspecified; F02.80 - Dementia in other diseases classified elsewhere without behavioral disturbance (3) Urinary tract infection: Urinary tract infection type: acute cystitis Hematuria presence: without hematuria Qualified Codes: N30.00 - Acute cystitis without hematuria (4) Atrial fibrillation: Atrial fibrillation type: chronic Qualified Codes: I48.2 - Chronic atrial fibrillation (5) Hypertension: Hypertension type: essential hypertension Qualified Codes: I10 - Essential ( primary) hypertension VALERI EDWARDS MD Dec 06, 2018 12:13
--- NOTE | 2018-12-06 12:45 | NUR ---
BOTH IV'S LEAKING. DR. EDWARDS NOTIFIED AND ORDER TO DC BOTH AND LEAVE OUT.
--- NOTE | 2018-12-06 13:18 | Progress Note ---
Subjective Time Seen by a Provider: 13:09 Subjective/Events-last exam Pt seen and examined, she is resting comfortably in bed. Review of Systems Pulmonary: No Dyspnea, No Cough Cardiovascular: No: Chest Pain Gastrointestinal: No: Nausea, Vomiting, Abdominal Pain Objective Exam Vital Signs Date Time Temp Pulse Resp B/P (MAP) Pulse Ox O2 Delivery O2 Flow Rate FiO2 12/06/18 11:43 97 Nasal Cannula 2.00 12/06/18 08:00 97.8 77 22 126/62 (83) 93 Nasal Cannula 2.00 12/06/18 07:42 94 Nasal Cannula 2.00 12/06/18 07:03 67 12/06/18 04:00 98.0 77 16 137/65 (89) 95 Nasal Cannula 2.00 12/06/18 01:00 80 12/06/18 00:00 97.9 77 16 132/62 (85) 96 Nasal Cannula 2.00 12/05/18 20:00 Nasal Cannula 3.00 12/05/18 19:19 98.1 79 18 122/59 (80) 98 Nasal Cannula 2.00 12/05/18 19:01 75 12/05/18 15:47 97.8 80 18 128/60 (82) 98 Nasal Cannula 2.00 12/05/18 14:48 93 Nasal Cannula 2.00 I & O 12/06/18 07:00 Intake Total 2655 ml Output Total 655 ml Balance 2000 ml Capillary Refill : Less Than 3 SecondsLess Than 3 Seconds General Appearance: No Apparent Distress, Chronically ill, Thin HEENT: Other (NGT in place) Respiratory: Lungs Clear, No Accessory Muscle Use, No Respiratory Distress Cardiovascular: No Murmur, Irregularly Irregular Gastrointestinal: other (ileostomy is viable with minimal output. Midline incision clean and dry, staple from around umbilicus fell off; but looks ok no drainage at this time) Neurologic/Psychiatric: Alert, Disoriented Skin: Ecchymosis (on forehead) Results Lab Laboratory Tests 12/06/18 04:25: White Blood Count 14.3H, Red Blood Count 3.08L, Hemoglobin 7.9L, Hematocrit 25L , Mean Corpuscular Volume 83, Mean Corpuscular Hemoglobin 26, Mean Corpuscular Hemoglobin Concent 31L, Red Cell Distribution Width 18.3H, Platelet Count 335, Mean Platelet Volume 11.3H, Sodium Level 137, Potassium Level 4.5, Chloride Level 107, Carbon Dioxide Level 19L, Anion Gap 11, Blood Urea Nitrogen 10, Creatinine 0.81, Estimat Glomerular Filtration Rate > 60, BUN/Creatinine Ratio 12, Glucose Level 110H, Calcium Level 7.7L, Magnesium Level 1.5L Microbiology 11/28/18 Blood Culture - Final, Complete No growth 12/03/18 MRSA Screen - Final, Complete MRSA not isolated 11/28/18 Urine Culture - Final, Complete YEAST Assessment/Plan Assessment/Plan Assessment/Plan Near Obstructing lesion in Ascending colon Near Obstructing lesion in Descending colon Multiple Colon polyps Proctitis Gastric Ulcers Diverticula Anemia Hemoccult + Dementia Atrial fibrillation Sacral Decub S/P SubTotal colectomy; pt still looks good today. From surgical standpoint she can be sent home. F/U in my office in a week. Clinical Quality Measures DVT/VTE Risk/Contraindication: Risk Factor Score Per Nursin RFS Level Per Nursing on Admit: 3=High RICHIE SCHMITT DO Dec 06, 2018 13:18
--- NOTE | 2018-12-06 13:20 | NUR ---
Patient was on 2 L NC and was 94% O2 was removed and O2 sat dropped to 84% within 10 mins, RT placed 2 L NC back on patient and her sat came back up to 92% and stayed up! Patient is requiring 2 L NC at all times.
--- NOTE | 2018-12-06 14:51 | NUR ---
CM/SS. Patient discharged to new Medicare skilled placement with [facility] via their transport scheduled for 1530. Alfonzo Lovett is at bedside and aware of arrangement. Faxed orders, prepared packet to accompany patient. Unit RN updated.
--- NOTE | 2018-12-06 15:14 | NUR ---
KYARA'D PER WC TO [facility]. REPORT TO SHUKRI.
--- NOTE | 2018-12-09 12:29 | Physician Query Clarification ---
PQ-Intro New Diagnosis Admission/Discharge Admission Date: Nov 28, 2018 at 16:59 Discharge Date: Dec 06, 2018 at 15:14 The medical record reflects the following clinical scenario: History/Risk Factors: Per Dr Saenz 11/28/18 - Cardiology Consult:Having elevated troponin at this time, could be secondary to sepsis or atrial fibrillation. Conservative management at this point and monitor. Clinical Findings: Per DR Davidson 12/02 & 12/05 EPN:Elevated troponin at this time, probably related to sepsis and/or atrial fibrillation with RVR (Type 2 IA) Treatment: Conservative management and monitor Question: What condition best reflects the above clinical scenario? Please document below. 1. Type 2 IA 2. Non-ST elevation myocardial infarction 3. Other, with explanation of the clinical findings. 4. Clinically undetermined, no explanation for the clinical findings. PHYSICIAN RESPONSE What condition reflects above: 1 In responding to this query, please exercise your independent professional judgment. The purpose of this communication is to more accurately reflect the complexity of your patients condition. The fact that a question is asked does not imply that any particular answer is desired or expected. Thank you for your timely response to this clarification. Requestors name: Eloise Bolanos THIS PHYSICIAN QUERY FORM IS A PERMANENT PART OF THE MEDICAL RECORD FREDA BOLANOS Dec 09, 2018 12:29 VALERI EDWARDS MD Dec 09, 2018 14:58
== END 2018-12-06 15:14 | DRG 981 ==
LOC: EDUNIT# 14:33 → ER 14:35 → 4TH 16:59 → UNDOADMIN 16:59 → 4TH 11-29 13:05
PROVIDERS: ADMIT Internal Medicine; ATTEND Internal Medicine
PROC: 0DBL8ZX Excision of Transverse Colon, Via Natural or Artificial Opening Endoscopic, Diagnostic (ICD-10-PCS; 2018-12-03)
PROC: 0DBN8ZX Excision of Sigmoid Colon, Via Natural or Artificial Opening Endoscopic, Diagnostic (ICD-10-PCS; 2018-12-03)
PROC: 0DB98ZX Excision of Duodenum, Via Natural or Artificial Opening Endoscopic, Diagnostic (ICD-10-PCS; 2018-12-03)
PROC: 0DB78ZX Excision of Stomach, Pylorus, Via Natural or Artificial Opening Endoscopic, Diagnostic (ICD-10-PCS; 2018-12-03)
PROC: 0DBB0ZZ Excision of Ileum, Open Approach (ICD-10-PCS; 2018-12-04)
PROC: 0DBJ0ZZ Excision of Appendix, Open Approach (ICD-10-PCS; 2018-12-04)
PROC: 0DBP0ZZ Excision of Rectum, Open Approach (ICD-10-PCS; 2018-12-04)
PROC: 0D1B0Z4 Bypass Ileum to Cutaneous, Open Approach (ICD-10-PCS; 2018-12-04)
PROC: 0DTE0ZZ Resection of Large Intestine, Open Approach (ICD-10-PCS; principal; 2018-12-04 14:30)
DX: B37.41 Candidal cystitis and urethritis (principal); I21.A1 Myocardial infarction type 2; I25.10 Atherosclerotic heart disease of native coronary artery without angina pectoris; I48.0 Paroxysmal atrial fibrillation; R41.82 Altered mental status, unspecified; L89.152 Pressure ulcer of sacral region, stage 2; L89.322 Pressure ulcer of left buttock, stage 2; E87.6 Hypokalemia; E83.42 Hypomagnesemia; D64.9 Anemia, unspecified; K63.5 Polyp of colon; G30.9 Alzheimer's disease, unspecified; F02.80 Dementia in other diseases classified elsewhere, unspecified severity, without behavioral disturbance, psychotic disturbance, mood disturbance, and anxiety; I10 Essential (primary) hypertension; E78.00 Pure hypercholesterolemia, unspecified; I70.8 Atherosclerosis of other arteries; F41.9 Anxiety disorder, unspecified; K62.89 Other specified diseases of anus and rectum; Z85.43 Personal history of malignant neoplasm of ovary; I70.201 Unspecified atherosclerosis of native arteries of extremities, right leg; R60.0 Localized edema; H91.10 Presbycusis, unspecified ear; I08.1 Rheumatic disorders of both mitral and tricuspid valves; R19.5 Other fecal abnormalities; K31.7 Polyp of stomach and duodenum; K29.70 Gastritis, unspecified, without bleeding; K25.9 Gastric ulcer, unspecified as acute or chronic, without hemorrhage or perforation; K57.30 Diverticulosis of large intestine without perforation or abscess without bleeding
CPT/HCPCS: 36415; 51702; 70450; 71045; 80048; 80053; 80061; 81000; 82274; 82550; 83605; 83735; 83874; 84443; 84484; 85025; 85027; 85610; 85730; 86141; 86850; 86900; 86901; 87040; 87081; 87088; 87804; 88305; 93005; 93041; 93306; 94640; 94664; 94760; 94761; 96361; 96365; 96367; 96375

== ENCOUNTER 2018-12-07 15:56 | Emergency (ER) | payer MEDICARE ==
[~2018-12-07] VITALS: Ht 162.6 cm; Wt 68.0 kg
[~2018-12-07 15:56] MED LIST changes: +ACHD5005 PO; +ASPI-983 PO; +DILT120C94 PO; +DONE5TAB30 PO; +FERR-84 PO; +LISI10TA2 PO; +MEMA5TAB16 PO; +METO-333 PO; +OXYB5TAB9 PO; +POTA10TA6 PO; +ZINC28PA TOP
--- NOTE | 2018-12-07 16:30 | NUR ---
DRESSING CHANGED AT THIS TIME BY FABIAN LOONEY. 4X4'S, ABD PAD ET MEDIPORE TAPE TO WOUND.
--- NOTE | 2018-12-07 16:38 | NUR ---
REPORT CALLED TO [facility] AT THIS TIME. UNDERSTANDING VOICED
--- NOTE | 2018-12-07 16:43 | ED Integumentary General ---
General Chief Complaint: Skin/Wound Problems Stated Complaint: WOUND ISSUES History of Present Illness Date Seen by Provider: Dec 07, 2018 Time Seen by Provider: 16:20 Initial Comments 78-year-old female was discharge yesterday after having surgery earlier this week for bowel resection and ileostomy. She is a resident at [facility], and the staff noted clear drainage from her wound and when changing her dressing they found 2 andrew. Patient's daughter is present with her during exam. Timing/Duration: just prior to arrival Allergies and Home Medications Allergies Coded Allergies: propoxyphene (Verified Allergy, Unknown, 12/03/18) Home Medications Aspirin 81 Mg Tablet.dr, 81 MG PO DAILY, (Reported) Diltiazem HCl 120 Mg Cap.er.24h, 120 MG PO DAILY Prescribed by: VALERI EDWARDS on 12/06/18 0843 Ferrous Sulfate 325 Mg Tablet, 325 MG PO Q48H, (Reported) Hydrocodone Bit/Acetaminophen 1 Tab Tab, 1 TAB PO Q4H PRN for MOD Prescribed by: VALERI EDWARDS on 12/06/18 0843 Metoprolol Tartrate 25 Mg Tablet, 25 MG PO BID Prescribed by: VALERI EDWARDS on 12/06/18 0843 Oxybutynin Chloride 5 Mg Tablet, 5 MG PO BID, (Reported) Potassium Chloride 10 Meq Tablet.er, 10 MEQ PO BID WITH MEALS Prescribed by: VALERI EDWARDS on 12/06/18 08 Zinc Oxide 28 Gm Oint, 0 GM TOP TID Prescribed by: VALERI EDWARDS on 12/06/18 0843 Patient Home Medication List Home Medication List Reviewed: Yes Review of Systems Review of Systems Constitutional: no symptoms reported, see HPI Gastrointestinal: see HPI, other (wound concerns) All Other Systems Reviewed Negative Unless Noted: Yes Past Lidpxcs-Aeyvnq-Bqdvyo Hx Past Med/Social Hx: Reviewed Nursing Past Med/Soc Hx Patient Social History Alcohol Use: Denies Use Recreational Drug Use: No Smoking Status: Former Smoker Type Used: Cigarettes, Electronic/Vapor Former Smoker, Quit: Oct 25, 2018 Recent Hopitalizations: Yes Physical Abuse: No Sexual Abuse: No Mistreated: No Fear: No Immunizations Up To Date Tetanus Booster (TDap): Unknown Past Medical History Surgeries: No (COLECTOMY) Respiratory: No Cardiac: Yes (NON-STEMI, NO CARDIAC CATH-TREATED CONSERVATIVELY) Aneurysm, Heart Attack, High Cholesterol, Hypertension Neurological: Yes (POOR MEMORY) Dementia 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 Disorders: 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 Genitourinary: No Gastrointestinal: Yes (CHRONIC DIARRHEA WITH FECAL INCONTINENCE) Chronic Diarrhea Musculoskeletal: No Endocrine: No HEENT: No Cancer: Yes Ovarian Psychosocial: No Integumentary: No Blood Disorders: No Family Medical History Alcoholism 19 FATHER BRAIN ANEURYSM G8 SISTER Completed stroke G8 SISTER Hypertension 19 MOTHER Hypertension, Stroke Physical Exam Vital Signs Vital Signs - First Documented 12/07/18 16:08 Temp 97.5 Pulse 81 Resp 16 B/P (MAP) 138/77 (97) Pulse Ox 98 O2 Delivery Nasal Cannula O2 Flow Rate 2.50 Capillary Refill : General Appearance: WD/WN, no apparent distress Cardiovascular: normal peripheral pulses Respiratory: chest non-tender, lungs clear, normal breath sounds Gastrointestinal: non tender, soft, other (midline abdominal incision with andrew in place, no wound dehiscence noted. Two areas where andrew missing, but no concerns for wound. Trace clear drainage noted, just above umbilicus. No erythema, warmth, induration or fluctuance noted. Ostomy bag in place, with brown liquid in place. Appliance intact to skin, well sealed, with no stool leakage to skin or wound. ) Neurologic/Psychiatric: alert, normal mood/affect Skin: normal color, warm/dry Progress/Results/Core Measures Results/Orders Vital Signs/I&O 12/07/18 12/07/18 16:08 16:53 Temp 97.5 Pulse 81 0 Resp 16 0 B/P (MAP) 138/77 (97) 0/0 (0) Pulse Ox 98 0 O2 Delivery Nasal Cannula O2 Flow Rate 2.50 0 Progress Progress Note : Time: 16:20 Progress Note Patient seen and evaluated, spoke with Dr. Lay by phone. Discussed patient's assessment and findings. No additional treatment recommended at this time. Discharge instructions and return precautions reviewed with the patient and her daughter. Bulky sterile dressing applied to wound. Departure Impression Primary Impression: Visit for wound check Disposition: 01 HOME, SELF-CARE Condition: Improved Departure-Patient Inst. Decision time for Depature: 16:40 Referrals: OMAYRA GOLD MD (PCP/Family) Primary Care Physician Patient Instructions: Wound Care (DC) Add. Discharge Instructions: Change dressing Q2-4 hours, as needed. Keep clean and dry. Turn every 2 hours, keep pressure off coccyx and heels. Follow up with Dr. Schmitt, next week, if continued wound drainage or new concerns. Notify Dr. Schmitt (Dr. Lay commissioner conservation of resources for weekend), for wound concerns. Return to emergency department for new, urgent health care needs. All discharge instructions reviewed with patient and/or family. Voiced understanding. Copy Copies To 1: RICHIE SCHMITT AMY ARNP Dec 07, 2018 16:43
[2018-12-07 16:53] VITALS: BP 0/0
== END 2018-12-07 16:53 | disposition home or self-care (01) ==
LOC: EDUNIT# 15:56 → ER 15:57
DX: Z48.89 Encounter for other specified surgical aftercare (principal); I25.2 Old myocardial infarction; E78.00 Pure hypercholesterolemia, unspecified; I10 Essential (primary) hypertension; F03.90 Unspecified dementia, unspecified severity, without behavioral disturbance, psychotic disturbance, mood disturbance, and anxiety; Z85.43 Personal history of malignant neoplasm of ovary; Z82.49 Family history of ischemic heart disease and other diseases of the circulatory system; Z87.19 Personal history of other diseases of the digestive system; Z90.89 Acquired absence of other organs; Z93.2 Ileostomy status; Z88.8 Allergy status to other drugs, medicaments and biological substances; Z79.82 Long term (current) use of aspirin; Z87.891 Personal history of nicotine dependence; Z90.49 Acquired absence of other specified parts of digestive tract
CPT/HCPCS: 99282